=== PATIENT | female | born 1995 | race Two or more races ===

== ENCOUNTER 2024-05-20 14:46 | Outpatient (AMB) | payer MEDICAID, SELFPAY ==
[2024-05-20 15:00] VITALS: BP 119/79; PULSE 90; RESP 16; TEMP 36.5; O2SAT 98; BMI 25.4
--- NOTE | 2024-05-20 15:00 | ACNOTE_ITS ---
Vital Signs 05/20/24 15:00 Height 1.6 m Height Method Stated Weight 64.977 kg Weight Measurement Method Standing Scale BMI 25.4 BP 119/79 Blood Pressure Source Automatic Cuff Blood Pressure Location Left Upper Arm Position Sitting Respiration 16 Pulse 90 Pulse Source Monitor Temp 97.7 F Temp Source Oral Pulse Oximetry (%) 98 Oxygen Delivery Method Room Air Allergies/Meds Allergies & Medications Allergies No Known Allergies Allergy (Verified 05/20/24 15:01) Medication Reconciliation blood-glucose meter #1 ea 02/02/23 [Rx Confirmed 05/20/24] blood sugar diagnostic (Blood Glucose Test strips) #50 ea 09/21/23 [Rx Confirmed 05/20/24] blood sugar diagnostic (True Metrix Glucose Test Strip) #100 ea 09/21/23 [Rx Confirmed 05/20/24] dextrose 6 gram/15 mL oral gel (SugarUp) 10 g (25 mL) PO Q15M PRN hypoglycemia #100 mL 09/21/23 [Rx Confirmed 05/20/24] lancets #100 ea 09/21/23 [Rx Confirmed 05/20/24] pen needle, diabetic 29 gauge x 1/2 #100 ea 09/21/23 [Rx Confirmed 05/20/24] blood pressure monitor #1 ea 10/03/23 [Rx Confirmed 05/20/24] pantoprazole 40 mg tablet,delayed release 40 mg PO QDAY #30 tabs 01/01/24 [Rx Confirmed 05/20/24] melatonin 10 mg capsule 10 mg PO HS PRN sleep #20 caps 02/21/24 [Rx Confirmed 05/20/24] ergocalciferol (vitamin D2) 50 mcg (2,000 unit) capsule 150 mcg (3 x 50 mcg (2,000 unit)) PO QDAY #90 caps 03/11/24 [Rx Confirmed 05/20/24] glucagon 1 mg/0.2 mL subcutaneous auto-injector (Gvoke HypoPen 1-Pack) 1 mg (0.2 mL) subcut QDAY PRN hypoglycemia #0.2 mL 03/11/24 [Rx Confirmed 05/20/24] insulin lispro 100 unit/mL subcutaneous pen (Admelog SoloStar U-100 Insulin lispro) 15 unit (0.15 mL) subcut TID #15 mL 12/10/24 [Rx Confirmed 05/20/24] insulin lispro 100 unit/mL subcutaneous solution (Admelog U-100 Insulin lispro) 1 sliding scale dose subcut USEASDIRECTD #10 mL 03/11/24 [Rx Confirmed 05/20/24] duloxetine 30 mg capsule,delayed release 30 mg PO QDAY #30 caps 05/20/24 [Rx] insulin degludec 100 unit/mL (3 mL) subcutaneous pen 17 unit (0.17 mL) subcut HS #15 mL 05/20/24 [Rx] pregabalin 75 mg capsule 75 mg PO QHS diabetic neuropathy #30 caps 05/20/24 [Rx] MA Intake Visit Data Collection New Patient or Established: Established Patient (seen at [facility] within 3 years) Seen by Clinical Staff ONLY (RN/MA): No Pain Present Currently: No Pain scale:: 0 Pain Scale Used: Andrew-Singh/Numerical Synthetic Resin Operator Required: No PCP or OBGYN visit in last 3 months: Yes Hx Now: No Date of Last Menstrual Period: 05/19/24 Do You Feel Safe at Home: Yes Authorities Contacted: N/A Smoking Status Smoking Status: Never smoker Immunization / Flu Flu Vaccine in the Last 12 Months: No Flu Vaccine Exclusion Criteria: No Exclusion Criteria Past Medical History Past Medical History NEUROLOGIC: Negative Neurological Disorders or Seizures CARDIAC: Negative Cardiac Disorders or Congestive Heart Failure RESPIRATORY: Negative Chronic Obstructive Pulmonary Disease (COPD) or Asthma GASTROINTESTINAL: Negative Gastrointestinal Disorders or Gastroesophageal Reflux Disease GENITOURINARY: Negative Genitourinary Disorders, Renal Disease or Kidney Stones ENDOCRINE: Positive Endocrine Disorders, Diabetes Mellitus Type 1 and Diabetes Mellitus Type 2 HEMATOLOGIC: Negative Blood Disorders or Sickle Cell Disease PSYCHO/SOCIAL: Negative Depression OTHER HISTORY: Positive Hospitalization; Negative Falls, Blood Transfusions, Blood Transfusion Reaction, Anesthesia Reactions or MRSA Family History FAMILY HISTORY: Negative Family Psychiatric Problems, Family Respiratory Disorders, Family Cardiac Disorders, Family Gastrointestinal Problems or Family Cancer Social History SMOKING STATUS: Smoking status: Never smoker SECOND HAND EXPOSURE: second hand exposure: No (boyfriend vapes, goes outside to smoke) ALCOHOL: Alcohol Intake: Current ALCOHOL FREQUENCY: Alcohol Intake Frequency: A Few Times a Week HOUSING: Housing: House LIVES WITH: Lives With: Family Patient Portal [facility] Social History Living Situation History Housing: House Housing Other:: Lives w/family Tobacco History Smoking Status: Never smoker Second Hand Smoke Exposure: No (boyfriend vapes, goes outside to smoke) Alcohol History Alcohol Intake: Current Alcohol Intake Frequency: A Few Times a Week Substance Use History Substance Use: Marijuana Domestic Abuse History Do You Feel Safe at Home: Yes Review of Systems Report any current symptoms Only answer those that you have currently: Past Medical History Past Medical History Have you ever been diagnosed with any of the following: Neurological Problems Seizures: No Cardiology Problems Congestive Heart Failure: No Respiratory Problems Chronic Obstructive Pulmonary Disease (COPD): No Asthma: No Stomache/Intestinal Problems Gastroesophageal Reflux Disease: No Genital/Urinary Problems Renal Disease: No Kidney Stones: No Endocrine Problems Diabetes Mellitus Type 1: Yes Diabetes Mellitus Type 2: Yes Blood Problems Sickle Cell Disease: No Psychologic Problems Depression: No Other Problems Hospitalization: Yes Falls: No Blood Transfusions: No Blood Transfusion Reaction: No Anesthesia Reactions: No MRSA: No History of Present Illness HPI Narrative Ms. 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 She has uncontrolled blood sugars and she was not taking her insulin units properly. Hence dose was adjusted. Pt still complaints of tingling sensations and pain in her extremities. Pt was vitally stable and labs will be repeated after three weeks. 03/02/23: Pt came for follow up. She reports having itching on her back. She reports having elevated Blood glucose above 300 mg. She has been feeling unrested secondary to numbness and tingling sensations in extremities.She followed up with her [facility] in [facility] for bladder irritation but she denied taking antibiotic at that time and feels improved now. She has been feeling anxious and reports having palpitations. She was mildly tacycardiac with normal blood pressure. 03/23/23: Patient came for follow up. All labs were reviewed.Patient still complaints of itching and high blood sugars in 400s.Blood glucose of 430 mg/dl, Creatinine of 1.04 , sodium of 132. UA was positive for glucose only. She was counselled to take an appointment with cardiopulmonary specialist Dr Arias in [place] for insulin infusion pump. We added fexofenadine and apply moisturizer for pruritus. She denied itching present in anyone else at home. She stated that she has improvement in her anxiety and neuropathy. Switched her lantus to 15 units twice daily and counselled on uptitration based on her blood sugars and continue insulin sliding scale. 04/11/23(ED VISIT in [facility]): Patient went to the ED with chief complaint of generalized pruritus. She denied fever vomiting diarrhea she has no cough or congestion she has had no recent cold. her only concern was that her sugars are high and she needs better management of her diabetes. Medical workup revealed a sugar elevated at 415 otherwise the beta-hydroxybutyrate is negative. Her vital signs are unremarkable. White count is 8.5 hemoglobin 12.6 sodium 136 potassium 4.9 chloride 103 CO2 is 26.8 anion gap is 6 BUN is 18 creatinine 1.2 osmolality is 291. Liver transaminases unremarkable urine is little on the dry side at 1032 she has a few red blood cells in her urine she is not . And she has 4+ glucose in her urine. Patient has intermittent pruritus on her whole body including vagina area it is not just the vaginal area without any vaginal discharge. Concerned was that its more of a stress issue and was advised to keep a diary and record what she is eating what she is doing when she is thinking. She knows she needs to be more aggressive on her diabetes management. She may benefit by getting referred to a neurologist to sort out whether she really has a neuropathy but at this point there is no evidence of a glove and stocking distribution anything. And clinically she has normal sensation normal gait and no obvious neurological deficits. 04/20/23:Patient came for follow up. She reported that she still has complaint of mild itching which is generalized and no vaginal itching present now. She denied any vaginal discharge or burning sensation. She sometimes has mild vaginal pricking sensation. Her Blood sugars have been in 300s on insulin 26 Units. She didn't receive Fexofenadine from the pharmacy due to some reason last time and didn't take which explains persistent itching.She reported improvement in her pain in peripheral extremities. No rash or urticaria seen. Patient has scheduled appt with neurologist in [place] and was advised to schedule appt with cardiopulmonary specialist Dr Arias in [place]. 05/18/23: Patient seen in clinic. She denies any acute illness or hospitalizations since last visit. She reports her anxiety continues to be severe with no improvement since last visit. She reports anxiety can come on with no specific trigger. She denies trying Rx for anxiety in the past. Patient was prescribed buspirone on previous visit but has not taken secondary to cost and insurance not covering per patient. Discussed with patient that we will send different Rx to her pharmacy. Patient reports generalized itchiness on previous visit has completely resolved. She reports she obtained ethk-raz-hqhhzgd lotion which significantly helped. Patient continues to endors e bilateral neuropathy in her feet. She reports minor improvement with Lyrica. She denies seeing a residential program coordinator or brick pointer in the past. She reports she was diagnosed with diabetes at the age of 4. Last A1c on file 12.5%. Patient does report she recently completed labs at [facility] which are not available at this time and patient advised to have results faxed to our clinic. Patient is currently managing her diabetes with long-acting insulin 26 units at bedtime and 12 to 14 units 3 times daily of short acting insulin. Patient was referred to endocrinology previous visit but has not scheduled appointment but patient agrees to follow-up. She reports her weight has been stable. She denies headache and chest pain. No shortness of breath. She denies seeing blood in her urine or stool. She endorses normal bowel habits. She is sexually active with her boyfriend. 06/08/23: Patient was seen in the clinic. She still complaints of mild anxiety and her blood sugars continues to remain elevated. Her fasting blood sugar is above 250 and after meals are 300s. I discussed with the patient that we will stop her insulin lispro and lantus and will switch to degludec and lyumjev. She might be resistant to her old insulin regime. She was referred to residential program coordinator and brick pointer for screening. We ordered A1c and C-peptide level to check her insulin reserves if any. Patient understood and agreed to the plan. She doesnt want to have a visit to Obygyn visit for now. No plan for at this stage. 09/07/23: Patient came for follow-up in the clinic today. Patient reported that she forgot her dose of insulin for Lantus and has been feeling overall better. Her blood sugars have been around 380s. She was advised to start Lantus 20 units and uptitrate 1 unit every day until blood sugars come below 200 mg. Patient also reported having itchy allergic rash on both elbows noticed a month ago and recently using gyrm-onw-pyhwowp allergic ointment which has been helping partially. Ordered hydrocortisone 1% topical for week. Patient was advised to make an appointment with residential program coordinator and brick pointer as outpatient. We will continue with current management and patient has been doing well. Her anxiety has improved. No plans for . We will continue with current management. Refills were given. 09/21/2023: Telephone consult. Patient went to the ED On 09/14/2023 due to cellulitis of labia majora and was given prescription of TMP-SMX which has been helping for her complaint however was having persistent left flank pain. Urinalysis and renal functions were ordered. Follow-up on results. Medication refills were given. Blood sugars continues to remain evaluated prefer Lantus was increased to 35 units and lispro was increased to 12 units. Insurance did not cover for her Tresiba. Continue with rest of the management. 01/01/24: Patient came for follow up for unstable glycemic control. Patient was complaining of muscle cramps associated with numbness and tingling in both lower extremities and has been facing troubles maintaining her blood sugars. She reported that her blood sugars have been in 500s and was having hard time adjusting her insulin regimen. Patient is referred to cardiopulmonary specialist, Dr. Arias in [place] and referred to residential program coordinator, Dr. Jose Elias Kerr at [facility] for further evaluation. Insulin Lantus was adjusted to 20 units twice daily and lispro as 15 units 3 times daily with meals with insulin sliding scale. Refills were given for the rest of medications. A1c was ordered for follow-up. Patient stated that her itching and rash has resolved therefore fexofenadine and hydrocortisone topical was discontinued. She does have improvement in her depression and anxiety after taking duloxetine. 05/20/2024: Patient came for follow-up for lab workup. Patient was seen and examined at the bedside this afternoon in the clinic. Patient reported that she continues to have numbness and tingling sensations in both lower extremities however has been feeling improved with duloxetine and pregabalin combination. She also reported that her insulin requirements have been higher given the fact that her blood sugars have been in 600 however they have been around 300 from last few weeks. She does have a component of noncompliance with the diet and eat fried food along with complex carbohydrates. -->She is currently using basal bolus regimen including Tresiba 17 units at night and 15 units 3 times daily lispro and add on with sliding scale corrective dose for carbs ratio. She was not able to get residential program coordinator appointment and was given another referral for Dr. Jose Elias segundo. CBC, CMP, C-peptide and GGT were ordered. She may benefit with insulin infusion pump therefore prior authorization was started with [facility]. For now, she was recommended to continue with her current regimen of insulin and duloxetine with pregabalin for neuropathy. Duloxetine was refilled. Will follow-up on the labs and follow-up in 2 weeks. Objective/Exam Narrative Physical exam: GENERAL APPEARANCE: AxOx3, generally well-appearing female in no acute distress. HEENT: NC, AT. MMM. EOMI, clear conjunctiva, oropharynx clear. NECK: Supple without lymphadenopathy. No stiffness or restricted ROM. HEART: Sinus tachycardia with regular rhythm, normal S1/S2, no m/r/g LUNGS: CTAB, moving air well. No crackles or wheezes are heard. ABDOMEN: Soft, nontender, nondistended with good bowel sounds heard. EXTREMITIES: Without cyanosis, clubbing or edema. NEUROLOGICAL: Grossly nonfocal. Alert and oriented, moving all 4 extremities. CN not formally tested but appear grossly intact. Observed to ambulate with normal gait. Skin:Warm and dry without any rash. Psych: cooperative and interactive Assessment & Plan Diagnosis / Problem List (1) Type 1 diabetes mellitus with diabetic neuropathy: Status: Acute Assessment & Plan: #Type 1 diabetes with diabetic neuropathy ? Patient was diagnosed at the age of 4. ?Recent A1c 13.5 01/14/24 Plan: ? Follow-up on CBC, CMP, C-peptide and GGT ? Currently continuing Tresiba 17 units at bedtime, lispro 15 units 3 times daily and add on sliding scale ? Continuing pregabalin 75 mg at night and duloxetine 30 mg at morning ? Recommended to follow strict diabetic diet ? Prescription for duloxetine given ? Referral to residential program coordinator Dr. Jose Elias Kerr, for diabetic foot evaluation ? Follow-up in 2 weeks (2) GERD (gastroesophageal reflux disease): Status: Acute Qualifiers: Esophagitis presence: without esophagitis Qualified Code(s): K21.9 - Gastro-esophageal reflux disease without esophagitis Assessment & Plan: #GERD ? Patient had no active issue today. Plan: ?Recommended to continue Protonix 40 mg once daily (3) Generalized anxiety disorder: Status: Acute Assessment & Plan: #Generalized anxiety disorder ? Patient's symptoms have improved for anxiety. Plan: ? Continue duloxetine as it is helping for symptoms -- Patient was seen and discussed with MD Jerry Baron MD,[id number] Orders: Orders CBC Today E10.40 - Type 1 diabetes mellitus with diabetic neuropathy, unspecified Comprehensive Metabolic Panel Today C-Peptide* Today E10.40 - Type 1 diabetes mellitus with diabetic neuropathy, unspecified Gamma Glutamyl Transpeptidase* Today E10.40 - Type 1 diabetes mellitus with diabetic neuropathy, unspecified Referrals Podiatry E10.43 - Type 1 diabetes mellitus with diabetic autonomic (poly)neuropathy Office Procedures [facility] Level of Care Nursing/Assessment Patient Status: Established Patient Nursing Assessment/Reassessment: Medication Reconciliation, Update PMH in EMR and Vital Signs Coordination of Care: Complex Care and Chronic Disease 1-5, Consent,records obtained, informed consent, Education Simp Pt/Fam, Lab and Imaging orders and Staff clarify orders Established Patient Charge Established Patient Point Assignment: 100 Established Patient Point Charge: Level 3 (80-115)
== END 2024-05-20 15:50 | disposition home or self-care (01) ==
LOC: HODAHC 14:46
PROVIDERS: PCP Student in an Organized Health Care Education/Training Program; Referring Provider Student in an Organized Health Care Education/Training Program; Supervising Provider Internal Medicine; Visit Provider Student in an Organized Health Care Education/Training Program
DX: E10.42 Type 1 diabetes mellitus with diabetic polyneuropathy (principal); Z91.119 Patient's noncompliance with dietary regimen due to unspecified reason; Z79.4 Long term (current) use of insulin; F41.1 Generalized anxiety disorder
CPT/HCPCS: 99213; G0463

== ENCOUNTER 2024-08-11 11:44 | Inpatient (IN) | payer MEDICAID, SELFPAY ==
[2024-08-11] VITALS (13 sets, daily range): BP systolic 93–121; BP diastolic 59–77; PULSE 90–118; RESP 12–19; TEMP 36.4–37.1; O2SAT 98–100; BMI 23.3
--- NOTE | 2024-08-11 12:10 | XR_ITS ---
Examination: PA chest single view TECHNIQUE: Upright PA chest single view Date and time: August 11, 2024 1256 hours INDICATIONS: Shortness of breath today. FINDINGS: Normal heart size No pneumonia 7 mm pulmonary nodule left upper lobe Intact osseous structures IMPRESSION: No lobar pneumonia 7 mm pulmonary nodule left upper lobe, likely postinfectious, clinical correlation advised
--- NOTE | 2024-08-11 12:10 | PD.EDADULT ---
ED General RME/HPI General Chief complaint: Shortness of Breath/Dyspnea Stated complaint: SOB X3 DAYS Arrival date/time: 08/11/24 11:44 RME / HPI RME / HPI narrative: This patient is a 28-year-old female with past medical history of insulin-dependent type 1 diabetes, history of DKA in the past, Hx of anxiety, diabetic neuropathy presented to the ED on 08/11/2024 with chief complaint of shortness of breath and tachycardia/racing of heart from last 3 days. She reported that she checked her blood sugar this morning which was around 421 and gave herself 7 units of insulin. She is using glargine at night around 26 units. She reported that she had a vomiting episode last night after eating from [employer]. Vomiting consisted of digested food particles. She has been having difficulty in getting OmniPod insulin infusion pump from [facility] pharmacy due to some insurance issues although insurance approved insulin pump. Patient's last menstrual period was 2 days ago. She has been having some personal issues related to family and has been stressed out lately.She denied any fever, chest pain, abdominal discomfort or dysuria's. No recent travel. She has been taking her medications.She follows up with me in our [facility]. Being her primary care doctor, I reached out to administrative receptionist, Dr. Arias for help In regards to insulin pump. She would not be able to see Dr. Arias as outpatient given her insurance limitation. He stated that patient would not benefit with OmniPod insulin pump which were getting insurance authorization with help of pharmacist in hospital due to difficulty of managing it it outpatient. He recommended to get authorization for 780G pump with Guardian 4 sensor which we started working on. We would have someone to come and help the patient as outpatient with this pump. Patient was notified and will start with the process for 780G pump insulin pump. PSH: Noncontributory FH: Positive for diabetes in grandfather SH: Smokes 2 to 3 cigarettes every day, smokes marijuana once every week. No history of illicit drug use. Home medications: Degludec 26 units, lispro units based on carb intake, duloxetine 30 mg, melatonin as needed for sleep, omeprazole 40 mg, vitamin D, pregabalin 75 mg Allergies: NKDA Vitals showed soft blood pressure 93/64, heart rate 118, respiratory rate 19 and afebrile. Patient was saturating well on room air. PMH: As above We ordered basic labs including EKG, CBC, CMP, urine drug screen, urine beta-hCG, lactic acid, magnesium, phosphorus, urinalysis, VBG's and BHB along with blood sugar check. Chest x-ray was ordered. I gave her 1 L bolus of LR, Pepcid x 1 and Zofran x 1. Will follow-up with the lab results. 12:55 patient had an episode of vomiting while using the restroom. She reported that she has been having anxiety due to her family related problems at home. I ordered hydroxyzine p.o. 25 mg x 1. Awaiting labs. 14:28 labs were significant for leukocytosis WBC 12.9, hemoglobin 13.5, platelet count for 459. VBG showed pH 7.12, pCO2 18. Chemistry panel was significant for anion gap metabolic acidosis with bicarb less than 10 anion gap of 21. Kidney function showed mild NGUYỄN with BUN 19 and creatinine 1.5 with baseline creatinine 1.4. Blood glucose 194. Lactic acid 1.7. Enzymes unremarkable. Mildly elevated ALP. BHB 5.1. Chest x-ray significant for 7 mm pulmonary nodule left upper lobe. No active disease. Patient denied any symptoms. Urine test negative. U tox was negative.EKG showed sinus tachycardia with QTc 441. Urinalysis was turbid with pyuria associated with glucosuria and ketones. Differential diagnosis included intractable nausea and vomiting related to DKA, uncontrolled type 1 diabetes due to insulin and diet non compliance, anion gap metabolic acidosis, leukocytosis 14: 32 ICU team was called for admission for DKA management. Patient was updated that she needs to be strictly compliant with her diet and insulin therapy until she get insulin pump from pharmacy. Patient was also advised to cut back on smoking as there was a pulmonary nodule finding in her imaging results. She was updated that she will be admitted for DKA management. ICU team accepted the patient. complaint: SOB and racing of heart Onset (ago): day(s) (1) Associated symptoms: shortness of breath Related Data Previous Rx's ?Medication ?Instructions ?Recorded blood-glucose meter #1 ea 02/02/23 blood sugar diagnostic (Blood #50 ea 09/21/23 Glucose Test strips) blood sugar diagnostic (True #100 ea 09/21/23 Metrix Glucose Test Strip) dextrose 6 gram/15 mL oral gel 10 g (25 mL) PO Q15M PRN 09/21/23 (SugarUp) hypoglycemia #100 mL lancets #100 ea 09/21/23 pen needle, diabetic 29 gauge x #100 ea 09/21/23 1/2 blood pressure monitor #1 ea 10/03/23 melatonin 10 mg capsule 10 mg PO HS PRN sleep #20 caps 02/21/24 ergocalciferol (vitamin D2) 50 mcg 150 mcg (3 x 50 mcg (2,000 unit)) 03/11/24 (2,000 unit) capsule PO QDAY #90 caps glucagon 1 mg/0.2 mL subcutaneous 1 mg (0.2 mL) subcut QDAY PRN 03/11/24 auto-injector (Gvoke HypoPen hypoglycemia #0.2 mL 1-Pack) insulin lispro 100 unit/mL 15 unit (0.15 mL) subcut TID #15 mL 03/11/24 subcutaneous pen (Admelog SoloStar U-100 Insulin lispro) insulin lispro 100 unit/mL 1 sliding scale dose subcut 03/11/24 subcutaneous solution (Admelog USEASDIRECTD #10 mL U-100 Insulin lispro) insulin degludec 100 unit/mL (3 17 unit (0.17 mL) subcut HS #15 mL 05/20/24 mL) subcutaneous pen blood-glucose,patient safety coordinator,cont #1 ea 06/05/24 (Dexcom G7 Health Companion) hydroxyzine HCl 25 mg tablet 25 mg PO TID PRN itching #30 tabs 06/05/24 insulin aspart U-100 100 unit/mL 1 sliding scale dose subcut 06/05/24 subcutaneous cartridge (Novolog USEASDIRECTD upto 200 units every PenFill U-100 Insulin aspart) 3 days via insulin pump #15 mL insulin pump cartridge,auto #1 ea 06/05/24 dose,BT,G6/G7 with controller subcutaneous (Omnipod 5 G6-G7 Intro Kit(Gen 5) subcutaneous cartridge and controller) blood-glucose sensor (Dexcom G7 #1 ea 07/15/24 Sensor device) pregabalin 75 mg capsule 75 mg PO QHS diabetic neuropathy 07/15/24 #30 caps famotidine 20 mg tablet (Pepcid) 20 mg PO QDAY #90 tabs 08/11/24 Allergies Allergy/AdvReac Type Severity Reaction Status Date / Time No Known Allergies Allergy Verified 05/20/24 15:01 Review of Systems Review of Systems Systems Reviewed: All systems reviewed, normal except as documented Past Medical History Past Medical History NEUROLOGIC: Negative Neurological Disorders or Seizures CARDIAC: Negative Cardiac Disorders or Congestive Heart Failure RESPIRATORY: Negative Chronic Obstructive Pulmonary Disease (COPD) or Asthma GASTROINTESTINAL: Negative Gastrointestinal Disorders or Gastroesophageal Reflux Disease GENITOURINARY: Negative Genitourinary Disorders, Renal Disease or Kidney Stones MUSCULOSKELETAL: Negative Musculoskeletal Disorders ENDOCRINE: Positive Endocrine Disorders, Diabetes Mellitus Type 1 and Diabetes Mellitus Type 2 HEMATOLOGIC: Negative Blood Disorders or Sickle Cell Disease PSYCHO/SOCIAL: Negative Depression OTHER HISTORY: Positive Hospitalization; Negative Falls, Blood Transfusions, Blood Transfusion Reaction, Anesthesia Reactions or MRSA Family History FAMILY HISTORY: Negative Family Psychiatric Problems, Family Respiratory Disorders, Family Cardiac Disorders, Family Gastrointestinal Problems or Family Cancer Social History SMOKING STATUS: Never smoker SECOND HAND EXPOSURE: No (boyfriend vapes, goes outside to smoke) SUBSTANCE USE: does not use ED Exam Narrative Physical exam: GENERAL APPEARANCE: AxOx3, young female in mild distress due to racing of heart. HEENT: NC, AT. Dry mucous membrane. EOMI, clear conjunctiva, oropharynx clear. NECK: Supple without lymphadenopathy. No stiffness or restricted ROM. HEART: Sinus tachycardia with regular rhythm, normal S1/S2, no m/r/g LUNGS: CTAB, moving air well. No crackles or wheezes are heard. ABDOMEN: Soft, nontender, nondistended with good bowel sounds heard. EXTREMITIES: Without cyanosis, clubbing or edema. NEUROLOGICAL: Grossly nonfocal. Alert and oriented, moving all 4 extremities. CN not formally tested but appear grossly intact. Observed to ambulate with normal gait. Skin:Warm and dry without any rash. Psych: Mildly anxious however cooperative and interactive Course Course Course Narrative: This patient is a 28-year-old female with past medical history of insulin-dependent type 1 diabetes, history of DKA in the past, Hx of anxiety, diabetic peripheral neuropathy presented to the ED on 08/11/2024 with chief complaint of shortness of breath and tachycardia/racing of heart from last 3 days. Vitals showed soft blood pressure 93/64, heart rate 118, respiratory rate 19 and afebrile. Patient was saturating well on room air. PMH: As above We ordered basic labs including CBC, CMP, urine drug screen, urine beta-hCG, lactic acid, magnesium, phosphorus, urinalysis, VBG's and BHB along with blood sugar check. Chest x-ray was ordered. I gave her 1 L bolus of LR, Pepcid x 1 and Zofran x 1. Will follow-up with the lab results. 12:55 patient had an episode of vomiting while using the restroom. She reported that she has been having anxiety due to her family related problems at home. I ordered hydroxyzine p.o. 25 mg x 1. Awaiting labs. We ordered basic labs including EKG, CBC, CMP, urine drug screen, urine beta-hCG, lactic acid, magnesium, phosphorus, urinalysis, VBG's and BHB along with blood sugar check. Chest x-ray was ordered. I gave her 1 L bolus of LR, Pepcid x 1 and Zofran x 1. Will follow-up with the lab results. 12:55 patient had an episode of vomiting while using the restroom. She reported that she has been having anxiety due to her family related problems at home. I ordered hydroxyzine p.o. 25 mg x 1. Awaiting labs. 14:28 labs were significant for leukocytosis WBC 12.9, hemoglobin 13.5, platelet count for 459. VBG showed pH 7.12, pCO2 18. Chemistry panel was significant for anion gap metabolic acidosis with bicarb less than 10 anion gap of 21. Kidney function showed mild NGUYỄN with BUN 19 and creatinine 1.5 with baseline creatinine 1.4. Blood glucose 194. Lactic acid 1.7. Enzymes unremarkable. Mildly elevated ALP. BHB 5.1. Chest x-ray significant for 7 mm pulmonary nodule left upper lobe. No active disease. Patient denied any symptoms. Urine test negative. U tox was negative.EKG showed sinus tachycardia with QTc 441. Urinalysis was turbid with pyuria associated with glucosuria and ketones. Differential diagnosis included intractable nausea and vomiting related to DKA, uncontrolled type 1 diabetes due to insulin and diet non compliance, anion gap metabolic acidosis, leukocytosis 14: 32 ICU team was called for admission for DKA management. Patient was updated that she needs to be strictly compliant with her diet and insulin therapy until she get insulin pump from pharmacy. Patient was also advised to cut back on smoking as there was a pulmonary nodule finding in her imaging results. She was updated that she will be admitted for DKA management. ICU team accepted the patient. Quality Measures none Orders Category Date Time Status Admit to Inpatient Status Routine Admission 08/11/24 14:16 Active Patient Condition Routine Admission 08/11/24 14:16 Ordered Activity as Tolerated Routine Care 08/11/24 14:17 Ordered Bathroom Privileges as Tolerated Routine Care 08/11/24 14:19 Ordered Bedside Blood Glucose Q1H Care 08/11/24 14:19 Active COVID-19 Screening Questionnaire NOW Care 08/11/24 14:16 Active Marketing And Promotions Manager Q4H Care 08/11/24 14:19 Active DKA Protocol QSHIFT Care 08/11/24 14:19 Active Decision to Admit X1 Care 08/11/24 14:16 Completed EKG (ED ONLY) *Do not use* NOW Care 08/11/24 12:59 Completed Fingerstick [Bedside Blood Glucose] NOW Care 08/11/24 12:10 Completed Fingerstick [Bedside Blood Glucose] NOW Care 08/11/24 13:37 Active Insert IV NOW Care 08/11/24 12:10 Active Intake and Output Q1H Care 08/11/24 14:30 Ordered Intake and Output Q1H Care 08/11/24 15:30 Ordered Intake and Output Q1H Care 08/11/24 16:30 Ordered Intake and Output Q1H Care 08/11/24 17:30 Ordered Intake and Output Q1H Care 08/11/24 18:30 Ordered Intake and Output Q1H Care 08/11/24 19:30 Ordered Intake and Output Q1H Care 08/11/24 20:30 Ordered Intake and Output Q1H Care 08/11/24 21:30 Ordered Intake and Output Q1H Care 08/11/24 22:30 Ordered Intake and Output Q1H Care 08/11/24 23:30 Ordered NPO NOW Care 08/11/24 14:17 Active Notify provider NEEDED Care 08/11/24 14:16 Active Notify provider NEEDED Care 08/11/24 14:19 Active Obtain weight NOW Care 08/11/24 14:16 Active Seizure precautions NEEDED Care 08/11/24 14:17 Active Strict Intake and Output Q1H Care 08/11/24 14:30 Ordered Strict Intake and Output Q1H Care 08/11/24 15:30 Ordered Strict Intake and Output Q1H Care 08/11/24 16:30 Ordered Strict Intake and Output Q1H Care 08/11/24 17:30 Ordered Strict Intake and Output Q1H Care 08/11/24 18:30 Ordered Strict Intake and Output Q1H Care 08/11/24 19:30 Ordered Strict Intake and Output Q1H Care 08/11/24 20:30 Ordered Strict Intake and Output Q1H Care 08/11/24 21:30 Ordered Strict Intake and Output Q1H Care 08/11/24 22:30 Ordered Strict Intake and Output Q1H Care 08/11/24 23:30 Ordered Strict Intake and Output Q1H Care 08/12/24 00:30 Ordered Strict Intake and Output Q1H Care 08/12/24 01:30 Ordered Strict Intake and Output Q1H Care 08/12/24 02:30 Ordered Strict Intake and Output Q1H Care 08/12/24 03:30 Ordered Strict Intake and Output Q1H Care 08/12/24 04:30 Ordered Strict Intake and Output Q1H Care 08/12/24 05:30 Ordered Strict Intake and Output Q1H Care 08/12/24 06:30 Ordered Strict Intake and Output Q1H Care 08/12/24 07:30 Ordered Strict Intake and Output Q1H Care 08/12/24 08:30 Ordered Strict Intake and Output Q1H Care 08/12/24 09:30 Ordered Strict Intake and Output Q1H Care 08/12/24 10:30 Ordered Strict Intake and Output Q1H Care 08/12/24 11:30 Ordered Strict Intake and Output Q1H Care 08/12/24 12:30 Ordered Strict Intake and Output Q1H Care 08/12/24 13:30 Ordered Vital Signs, Non-Routine Q4H Care 08/11/24 14:30 Ordered Vital Signs, Non-Routine Q4H Care 08/11/24 18:30 Ordered Vital Signs, Non-Routine Q4H Care 08/11/24 22:30 Ordered Referral Registered Dietitian Routine Cons 08/11/24 14:19 Active Diet NPO (NOW) Diet 08/11/24 14:17 Active CXR1 [XR chest 1V] Stat Exams 08/11/24 12:10 Completed EKG (ED Only) Stat Exams 08/11/24 12:59 Draft Beta Hydroxybutyrate Stat Lab 08/11/24 12:20 Completed Blood Culture (Lab) Routine Lab 08/11/24 15:10 Received CBC AM DRAW Lab 08/12/24 05:00 Ordered CBC AM DRAW Lab 08/13/24 05:00 Ordered CBC AM DRAW Lab 08/14/24 05:00 Ordered CBC Stat Lab 08/11/24 12:20 Completed CMP [Comprehensive Metabolic Panel] Stat Lab 08/11/24 12:20 Completed Drug Screen,Urine Stat Lab 08/11/24 13:09 Completed HCG Qualitative,Urine Stat Lab 08/11/24 13:09 Completed Lactate (Lactic Acid) Q4H Lab 08/11/24 18:30 Ordered Lactate (Lactic Acid) Q4H Lab 08/11/24 22:30 Ordered Lactate (Lactic Acid) Q4H Lab 08/12/24 02:30 Ordered Lactate (Lactic Acid) Q4 Lab 08/12/24 06:30 Ordered Lactate (Lactic Acid) Q4 Lab 08/12/24 10:30 Ordered Lactate (Lactic Acid) Q4 Lab 08/12/24 14:30 Ordered Lactate (Lactic Acid) Q4 Lab 08/12/24 18:30 Ordered Lactate (Lactic Acid) Q4 Lab 08/12/24 22:30 Ordered Lactate (Lactic Acid) Q4 Lab 08/13/24 02:30 Ordered Lactate (Lactic Acid) Q4 Lab 08/13/24 06:30 Ordered Lactate (Lactic Acid) Q4 Lab 08/13/24 10:30 Ordered Lactate (Lactic Acid) Q4 Lab 08/13/24 14:30 Ordered Lactate (Lactic Acid) Stat Lab 08/11/24 12:20 Completed Mag [Magnesium] Stat Lab 08/11/24 12:20 Completed Magnesium Q4H Lab 08/12/24 02:30 Ordered Magnesium Q4 Lab 08/12/24 06:30 Ordered Magnesium Q4H Lab 08/12/24 10:30 Ordered Magnesium Q4H Lab 08/12/24 14:30 Ordered Magnesium Q4 Lab 08/12/24 18:30 Ordered Magnesium Q4H Lab 08/12/24 22:30 Ordered Magnesium Q4H Lab 08/13/24 02:30 Ordered Magnesium Q4H Lab 08/13/24 06:30 Ordered Magnesium Q4H Lab 08/13/24 10:30 Ordered Magnesium Q4H Lab 08/13/24 14:30 Ordered Phosphorous Q4 Lab 08/12/24 02:30 Ordered Phosphorous Q4 Lab 08/12/24 06:30 Ordered Phosphorous Q4 Lab 08/12/24 10:30 Ordered Phosphorous Q4 Lab 08/12/24 14:30 Ordered Phosphorous Q4 Lab 08/12/24 18:30 Ordered Phosphorous Q4 Lab 08/12/24 22:30 Ordered Phosphorous Q4 Lab 08/13/24 02:30 Ordered Phosphorous Q4 Lab 08/13/24 06:30 Ordered Phosphorous Q4 Lab 08/13/24 10:30 Ordered Phosphorous Q4 Lab 08/13/24 14:30 Ordered Phosphorous Stat Lab 08/11/24 12:20 Completed Renal Function Panel Q4 Lab 08/11/24 18:30 Ordered Renal Function Panel Q4 Lab 08/12/24 02:30 Ordered Renal Function Panel Q4 Lab 08/12/24 06:30 Ordered Renal Function Panel Q4 Lab 08/12/24 10:30 Ordered Renal Function Panel Q4 Lab 08/12/24 14:30 Ordered Renal Function Panel Q4 Lab 08/12/24 18:30 Ordered Renal Function Panel Q4 Lab 08/12/24 22:30 Ordered Renal Function Panel Q4 Lab 08/13/24 02:30 Ordered Renal Function Panel Q4 Lab 08/13/24 06:30 Ordered Renal Function Panel Q4 Lab 08/13/24 10:30 Ordered Renal Function Panel Q4 Lab 08/13/24 14:30 Ordered Urinalysis Stat Lab 08/11/24 13:09 Completed VBG [Venous Blood Gas] Stat Lab 08/11/24 12:20 Completed Venous Blood Gas Q4 Lab 08/11/24 18:30 Ordered Venous Blood Gas Q4 Lab 08/11/24 22:30 Ordered Venous Blood Gas Q4 Lab 08/12/24 02:30 Ordered Venous Blood Gas Q4 Lab 08/12/24 06:30 Ordered Venous Blood Gas Q4 Lab 08/12/24 10:30 Ordered Venous Blood Gas Q4 Lab 08/12/24 14:30 Ordered Venous Blood Gas Q4 Lab 08/12/24 18:30 Ordered Venous Blood Gas Q4 Lab 08/12/24 22:30 Ordered Venous Blood Gas Q4H Lab 08/13/24 02:30 Ordered Venous Blood Gas Q4H Lab 08/13/24 06:30 Ordered Venous Blood Gas Q4H Lab 08/13/24 10:30 Ordered Venous Blood Gas Q4H Lab 08/13/24 14:30 Ordered Acetaminophen Tab [Tylenol Tab] Med 08/11/24 14:16 Active 650 mg PO Q6H PRN Dextrose 5%-Lactated Ringers [D5-Lr] 1,000 ml Med 08/11/24 14:16 Active Pot Chl Additive [KCl Additive] 40 meq IV 250 mls/hr Dextrose 5%-Lactated Ringers [D5-Lr] 1,000 ml Med 08/11/24 14:16 Active IV 250 mls/hr Dextrose 50% Syr [D50w Syringe Abboject] Med 08/11/24 14:16 Active 25 ml IV PRNMRX1 PRN Famotidine Inj [Pepcid Inj] Med 08/11/24 12:10 Discontinued 20 mg IVP X1 ONE KCL 20 mEq/L in D5-LR Med 08/11/24 14:16 Active 20 meq in 1,000 ml IV 250 mls/hr Magnesium Sulfate 2 GM Ivpb [Magnesium Sulfate Ivpb] Med 08/11/24 14:16 Active 2 gm in 50 ml IV 25 mls/hr Ondansetron Inj [Zofran Inj] Med 08/11/24 14:16 Active 4 mg IV Q6H PRN Ondansetron Inj [Zofran Inj] Med 08/11/24 12:10 Discontinued 4 mg IV X1 ONE POT PHOS 15 mMol in NS 250 ML [Pot Phos 15 mMol in NS Med 08/11/24 14:16 Active 250 ml] 15 mmol in 250 ml IV PRN POTASSIUM CHL 10 mEq IVPB [Kcl Ivpb] Med 08/11/24 14:16 Active 10 meq in 100 ml IV 100 mls/hr POTASSIUM CHL 10 mEq IVPB [Kcl Ivpb] Med 08/11/24 14:16 Active 10 meq in 100 ml IV PRN Pre-Mixed [Pre-mixed Bag] 1 bag Med 08/11/24 14:16 Active Insulin Reg 100 Units/100 ml [Myxredlin] 100 unit IV 0.1 unit/kg/hr Ringers Lactated 1000 ml [Lactated Ringers] 1,000 ml Med 08/11/24 14:16 Active Pot Chl Additive [KCl Additive] 20 meq IV 250 mls/hr Ringers Lactated 1000 ml [Lactated Ringers] 1,000 ml Med 08/11/24 14:16 Active Pot Chl Additive [KCl Additive] 40 meq IV 250 mls/hr Ringers Lactated 1000 ml [Lactated Ringers] 1,000 ml Med 08/11/24 14:16 Active IV 250 mls/hr Ringers Lactated 1000 ml [Lactated Ringers] 1,000 ml Med 08/11/24 12:11 Discontinued IV 999 mls/hr Ringers Lactated 1000 ml [Lactated Ringers] 1,000 ml Med 08/11/24 13:30 Discontinued IV 999 mls/hr Sodium Bicarb 8.4% SYR Med 08/11/24 14:16 Active 50 ml IV PRN PRN Sodium Chloride 0.9% 250 ml [Ns] 250 ml Med 08/11/24 14:16 Active Sod Phos Additive [NaPhos Additive] 15 mmol IV 62.5 mls/hr hydrOXYzine HCL [Atarax] Med 08/11/24 12:51 Discontinued 25 mg PO X1 ONE Code Status Routine Oth 08/11/24 14:16 Ordered Vital Signs Vital signs: Vital Signs Pulse Rate 118 H 08/11/24 12:01 Blood Pressure 93/64 08/11/24 12:01 Pulse Oximetry (%) 99 08/11/24 12:01 Oxygen Delivery Method Room Air 08/11/24 12:01 Discharge Plan Plan Patient Disposition: Admit Acute Care w/in Hospital Problem List Clinical Impression: DKA (diabetic ketoacidosis), Vomiting, Palpitations MDM Narrative MDM hospital course (for use when minimal MDM required): This patient is a 28-year-old female with past medical history of insulin-dependent type 1 diabetes, history of DKA in the past, Hx of anxiety, diabetic peripheral neuropathy presented to the ED on 08/11/2024 with chief complaint of shortness of breath and tachycardia/racing of heart from last 3 days. Vitals showed soft blood pressure 93/64, heart rate 118, respiratory rate 19 and afebrile. Patient was saturating well on room air. PMH: As above We ordered basic labs including CBC, CMP, urine drug screen, urine beta-hCG, lactic acid, magnesium, phosphorus, urinalysis, VBG's and BHB along with blood sugar check. Chest x-ray was ordered. I gave her 1 L bolus of LR, Pepcid x 1 and Zofran x 1. Will follow-up with the lab results. 12:55 patient had an episode of vomiting while using the restroom. She reported that she has been having anxiety due to her family related problems at home. I ordered hydroxyzine p.o. 25 mg x 1. Awaiting labs. We ordered basic labs including EKG, CBC, CMP, urine drug screen, urine beta-hCG, lactic acid, magnesium, phosphorus, urinalysis, VBG's and BHB along with blood sugar check. Chest x-ray was ordered. I gave her 1 L bolus of LR, Pepcid x 1 and Zofran x 1. Will follow-up with the lab results. 12:55 patient had an episode of vomiting while using the restroom. She reported that she has been having anxiety due to her family related problems at home. I ordered hydroxyzine p.o. 25 mg x 1. Awaiting labs. 14:28 labs were significant for leukocytosis WBC 12.9, hemoglobin 13.5, platelet count for 459. VBG showed pH 7.12, pCO2 18. Chemistry panel was significant for anion gap metabolic acidosis with bicarb less than 10 anion gap of 21. Kidney function showed mild NGUYỄN with BUN 19 and creatinine 1.5 with baseline creatinine 1.4. Blood glucose 194. Lactic acid 1.7. Enzymes unremarkable. Mildly elevated ALP. BHB 5.1. Chest x-ray significant for 7 mm pulmonary nodule left upper lobe. No active disease. Patient denied any symptoms. Urine test negative. U tox was negative.EKG showed sinus tachycardia with QTc 441. Urinalysis was turbid with pyuria associated with glucosuria and ketones. Differential diagnosis included intractable nausea and vomiting related to DKA, uncontrolled type 1 diabetes due to insulin and diet non compliance, anion gap metabolic acidosis, leukocytosis 14: 32 ICU team was called for admission for DKA management. Patient was updated that she needs to be strictly compliant with her diet and insulin therapy until she get insulin pump from pharmacy. Patient was also advised to cut back on smoking as there was a pulmonary nodule finding in her imaging results. She was updated that she will be admitted for DKA management. Discussed patient's ED course, exam findings, labs and radiology results. ICU team accepted the patient. EKG Interpretation EKG #1: EKG Interpretation: EKG showed sinus tachycardia with QTc 441. Medication Administration(s) Medication Administration History Acetaminophen (Acetaminophen 325 Mg Tablet) 650 mg PO Q6H PRN PRN Reason: PAIN SCALE 1-3 (mild Stop: 09/10/24 14:15 Dextrose (Dextrose 50%-Water Inj 50 Ml Syringe) 25 ml IV PRNMRX1 PRN PRN Reason: Blood Sugar - Low Enoxaparin Sodium (Enoxaparin Sod Inj 40 Mg/0.4 Ml Syringe) 40 mg SC QDAY SARAH Stop: 08/26/24 08:59 Potassium Chloride (Kcl Ivpb) 10 meq in 100 mls @ 100 mls/hr IV .Q1H PRN PRN Reason: IF POTASSIUM LESS THAN 3.3 Stop: 09/10/24 14:15 Magnesium Sulfate (Magnesium Sulfate Ivpb) 2 gm in 50 mls @ 25 mls/hr IV .Q2H PRN PRN Reason: PER DKA PROTOCOL Stop: 09/10/24 14:15 Insulin Human Regular 100 unit (/ IV Miscellaneous Supplies) 100 mls @ 5.987 mls/hr IV .[id number] PRN; Protocol PRN Reason: PER PROTOCOL Stop: 09/10/24 14:15 Last Admin: 08/11/24 16:37 Dose: 0.025 unit/kg/hr, 1.497 mls/hr Documented By: SALINA Co-signed By: [facility] Dextrose/Lactated Ringer's (D5-Lr) 1,000 mls @ 250 mls/hr IV .Q4H PRN PRN Reason: PER PROTOCOL Stop: 09/10/24 14:15 Lactated Ringer's (Lactated Ringers) 1,000 mls @ 250 mls/hr IV .Q4H PRN PRN Reason: PER PROTOCOL Stop: 08/12/24 14:15 Potassium Chloride 20 meq/ (Lactated Ringer's) 1,010 mls @ 250 mls/hr IV .Q4H3M PRN PRN Reason: K LEVEL 3.3 TO 5.3mM/L Stop: 09/10/24 14:15 Potassium Chloride 40 meq/ (Lactated Ringer's) 1,020 mls @ 250 mls/hr IV .Q4H5M PRN PRN Reason: K LEVEL < 3.3 mM/L Stop: 09/10/24 14:15 Potassium Chloride 40 meq/ (Dextrose/Lactated Ringer's) 1,020 mls @ 250 mls/hr IV .Q4H5M PRN PRN Reason: K LEVEL < 3.3mM/L Stop: 09/10/24 14:15 Potassium Cl/Dextrose/Lact Ringer's (Kcl 20 Meq/L In D5-Lr) 20 meq in 1,000 mls @ 250 mls/hr IV .Q4H PRN PRN Reason: K LEVEL 3.3 TO 5.3 mM/L Stop: 09/10/24 14:15 Last Admin: 08/11/24 16:36 Dose: 250 mls/hr Documented By: SALINA Potassium Chloride (Kcl Ivpb) 10 meq in 100 mls @ 50 mls/hr IV PRN PRN PRN Reason: K LEVEL 3.3 to 5.3 & BG > 200 Stop: 09/10/24 14:15 Potassium Phosphate (Pot Phos 15 Mmol In Ns 250 Ml) 15 mmol in 250 mls @ 62.5 mls/hr IV PRN PRN PRN Reason: Phosphate <= 1mg/dL Stop: 09/10/24 14:15 Sodium Phosphate 15 mmol/ (Sodium Chloride) 255 mls @ 62.5 mls/hr IV .Q4H5M PRN PRN Reason: Phosphate <= 1mg/dL and K> than 5.3 Stop: 09/10/24 14:15 Ondansetron HCl (Ondansetron Inj 2 Mg/Ml Inj 2 Ml) 4 mg IV Q6H PRN; Protocol PRN Reason: NAUSEA OR VOMITING Stop: 09/10/24 14:15 Sodium Bicarbonate (Sodium Bicarb Inj 8.4% Syr 50 Ml Syringe) 50 ml IV PRN PRN PRN Reason: For ph <= to 7.0 Stop: 09/10/24 14:15 Discontinued Medications Famotidine (Famotidine Inj 10 Mg/Ml Vial 2 Ml) 20 mg IVP X1 ONE Stop: 08/11/24 12:11 Last Admin: 08/11/24 14:11 Dose: 20 mg Documented By: SALINA Hydroxyzine HCl (Hydroxyzine Hcl 25 Mg Tablet) 25 mg PO X1 ONE Stop: 08/11/24 12:52 Last Admin: 08/11/24 14:09 Dose: 25 mg Documented By: SALINA Lactated Ringer's (Lactated Ringers) 1,000 mls @ 999 mls/hr IV .Q1H1M ONE Stop: 08/11/24 13:11 Last Infusion: 08/11/24 15:17 Dose: Infused Documented By: Admin: 08/11/24 14:15 Dose: 999 mls/hr Documented By: SALINA Lactated Ringer's (Lactated Ringers) 1,000 mls @ 999 mls/hr IV .Q1H1M ONE Stop: 08/11/24 14:30 Last Admin: 08/11/24 15:16 Dose: Not Given Documented By: SALINA Non-Admin Reason: Cancelled by Provider Ondansetron HCl (Ondansetron Inj 2 Mg/Ml Inj 2 Ml) 4 mg IV X1 ONE; Protocol Stop: 08/11/24 12:11 Last Admin: 08/11/24 14:11 Dose: 4 mg Documented By: SALINA Diagnosis Differential Diagnosis ED Complaint MDM: DKA, anion gap metabolic acidosis, asymptomatic pyuria
[2024-08-11 12:38] LABS: Lactate (Lactic Acid) 1.7 mMol/L (0.4-2.0)
[2024-08-11 12:39] LABS: Base Excess, Venous -21 (-3-3); O2 Saturation, Venous 74 % (96-97); PCO2, Venous 18 mmHg (36-56); PO2, Venous 45 mmHg (15-58); pH, Venous 7.12 (7.33-7.66)
[2024-08-11 12:41] LABS: Basophils # (Auto) 0.1 Thou/mm3 (0.0-0.2); Basophils % (Auto) 1 % (0-2.5); Eosinophils % (Auto) 0 % (0-10); Hemoglobin 13.5 g/dL (12.0-16.0); Immature Granulocytes % (Auto) 1 % (0-0); Immature Granulocytes Auto 0.09 Thou/mm3 (0.00-0.00); Lymphocytes # (Auto) 1.9 Thou/mm3 (1.0-4.8); Lymphocytes % (Auto) 15 % (10-50); Mean Corpuscular HGB Conc 32.1 g/dl (31.0-37.0); Mean Corpuscular Hemoglobin 25.8 pg (25.0-35.0); Mean Corpuscular Volume 80 fL (80-100); Monocytes # (Auto) 0.7 Thou/mm3 (0.0-0.8); Monocytes % (Auto) 5 % (0-12); Neutrophils # (Auto) 10.1 Thou/mm3 (1.8-7.7); Neutrophils % (Auto) 78 % (37-80); Nucleated Red Blood Cell % 0 /100 WBC (0); Platelet Count 459 Thou/mm3 (140-440); Red Blood Count 5.23 Miln/mm3 (4.00-5.20); White Blood Count 12.9 Thou/mm3 (3.6-11.0)
--- NOTE | 2024-08-11 12:59 | EKG_ITS ---
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
[2024-08-11 13:10] LABS: Alanine Aminotransferase < 7 U/L (10-49); Albumin, Serum 4.7 gm/dL (3.5-5.0); Albumin/Globulin Ratio 1.4 (1.2-2.2); Alkaline Phosphatase 168 U/L (46-116); Anion Gap 21 (7-16); Aspartate Amino Transferase 11 U/L (0-34); BUN/Creatinine Ratio 13 Ratio (12-20); Bilirubin,Total 0.2 mg/dL (0.3-1.2); Blood Urea Nitrogen 19 mg/dL (9-23); Calcium 8.7 mg/dL (8.3-10.6); Calcium (Corrected) 8.7 mg/dL (8.5-10.1); Chloride 106 mMol/L (98-107); Creatinine (Component) 1.5 mg/dL (0.6-1.3); Globulin 3.3 gm/dL (2.3-3.5); Glucose 194 mg/dL (74-106); Magnesium 2.1 mg/dL (1.6-2.6); Osmolality,Calculated 281 (275-295); Phosphorous 2.6 mg/dL (2.4-5.1); Potassium 4.5 mMol/L (3.4-5.1); Sodium 137 mMol/L (136-145); eGFR 49 See Note
[2024-08-11 13:25] LABS: Collection Type, Urine Clean Catch
[2024-08-11 13:36] LABS: Carbon Dioxide < 10.0 mMol/L (20.0-31.0)
[2024-08-11 13:41] LABS: Beta Hydroxybutyrate 5.1 mmol/L (<0.6)
[2024-08-11 13:56] LABS: HCG Qualitative,Urine Negative
[2024-08-11 13:58] LABS: Amphetamine/Methamp Scrn,U Negative (Negative); Barbiturate Screen,Urine Negative (Negative); Benzodiazepines Screen,Urine Negative (Negative); Benzoylecgonine Screen, Ur Negative (Negative); Fentanyl Screen,Urine Negative (Negative); Opiate Screen,Urine Negative (Negative); THC Screen,Urine Negative (Negative)
[2024-08-11 14:02] LABS: Bilirubin,Urine Negative (Negative); Blood,Urine 3+ (Negative); Budding Yeast,Urine Present; Clarity,Urine Turbid (Clear/Hazy); Color,Urine Lt-Yellow (Lt Yel-Yel); Glucose, Urine 3+ (Negative); Ketones,Urine 4+ (Negative); Leukocyte Esterase,Urine Positive (Negative); Nitrite,Urine Negative (Negative); PH,Urine 5.5 (5.0-7.0); Protein,Urine 1+ (Neg - Trace); RBC,Urine 9 /hpf (0-3); Specific Gravity,Urine 1.019 (1.001-1.035); Squamous Epithelial Cell,Urine 6 /hpf (0-5); Urobilinogen,Urine Negative mg/dL (0.0-1.0); WBC,Urine 11 /hpf (0-5)
[2024-08-11] MEDS: hydrOXYzine HCL 25 MG TABLET PO (14:09)
[2024-08-11] MEDS: ONDANSETRON INJ 2 MG/ML INJ 2 ML 4 MG IV (14:11)
[2024-08-11] MEDS: FAMOTIDINE INJ 10 MG/ML VIAL 2 ML 20 MG IVP (14:11)
[2024-08-11] MEDS: RINGERS LACTATED 1000 ML 1,000 ML 999 ML IV (14:15)
--- NOTE | 2024-08-11 14:29 | ESHP_ITS ---
<Statement entered by Theresa Huffman MD - 08/12/24 08:02> TOTAL CC TIME: 45 MIN I saw and evaluated the patient. I reviewed the resident?s note and agree with findings and plan as documented in the resident?s note. Upon my evaluation, this patient had a high probability of imminent or life- threatening deterioration due to DKA which required my direct attention, intervention, and personal management. This time is exclusive of time spent on procedures, which are documented separately if performed. Patient was seen and examined in the emergency room. Will start insulin drip and IV fluids. No obvious source of infection identified. Monitor electrolytes carefully. Replace as needed. Documentation for date of: 08/11/24 HPI History of Present Illness Chief complaint: tachycardia History of present illness: Patient is a 28 year old female with PMH of DM1 who presents to the ER for tachycardia and shortness of breath for the last 3 days. Associated with poor appetite, nausea and an episode of vomiting yesterday. Denies headache, fever, chest pain, stomach pain, dysuria, swelling in her legs. Patient is having insurance issues with obtaining an insulin pump and endorses struggling with her blood sugars at home. This morning, her blood sugar was 421 so she gave herself 7 units of insulin. Patient felt similar to previous DKA episodes and thinks the recent hot weather exacerbated her dehydration, so came to the ER. PMH: DM1, a1c 12 in Dec; diabetic neuropathy, anxiety Allergies: NKDA SH: lives with family. Social smoker (tobacco and THC), social drinker. PCP: Dr. Chavez at [facility] Meds: pepcid, venlafaxine, pregabalin, Degludac 25 units HS and ISS for mealtime Upon presentation to the ER, vitals notable for sinus tachycardia at 118. Chemistry panel shows HCO3 < 10 wtih an elevated anion gap of 21, elevated creatinine at 1.5 and BHB at 5.1. UA showed ketonuria and glucosuria. VBG shows metabolic acidosis with a pH of 7.12. She was given given 1L of NS, ondansetron, hydroxyzine and pepcid. Patient to be admitted to the ICU for DKA. Review of Systems Review of Systems Systems Reviewed: All systems reviewed, normal except as documented Exam Vital Signs Temp Pulse Resp BP Pulse Ox O2 Del Method 97.9 F 95 16 99/77 99 Nasal Cannula 08/11/24 13:57 08/11/24 14:19 08/11/24 14:19 08/11/24 14:19 08/11/24 14:19 08/11/24 14:19 Narrative Exam Constitutional: NAD. HEENT: NCAT. Mucous membranes dry. Respiratory: CTAB bilaterally. Cardiac: Tachycardic, sinus. Abdomen: Soft, non-distended, non-tender. MSK: No B/L LE edema. Skin: Warm, dry, intact. No obvious lesions. Results: Labs 08/11/24 12:20 08/11/24 12:20 Labs: Short CBC 08/11/24 Range/Units 12:20 WBC 12.9 H (3.6-11.0) Thou/mm3 Hgb 13.5 (12.0-16.0) g/dL Hct 42.0 (36.0-46.0) % Plt Count 459 H (140-440) Thou/mm3 BMP 08/11/24 12:20 Sodium 137 Potassium 4.5 Chloride 106 Carbon Dioxide < 10.0 L* BUN 19 Creatinine 1.5 H Glucose 194 H Calcium 8.7 Liver Function 08/11/24 Range/Units 12:20 Total Bilirubin 0.2 L (0.3-1.2) mg/dL AST 11 (0-34) U/L ALT < 7 L (10-49) U/L Alkaline Phosphatase 168 H (46-116) U/L Albumin 4.7 (3.5-5.0) gm/dL Urine 08/11/24 Range/Units 13:09 Urine Color Lt-Yellow (Lt Yel-Yel) Urine Clarity Turbid A (Clear/Hazy) Urine pH 5.5 (5.0-7.0) Ur Specific [place] 1.019 (1.001-1.035) Urine Protein 1+ A (Neg - Trace) Urine Glucose (UA) 3+ A (Negative) ABG Interpretation ABG results: 08/11/24 12:20 VBG pH 7.12 L VBG pCO2 18 L VBG pO2 45 VBG Base Excess -21 L Quality Measures Quality Measures none Medications Home Medications and Allergies Allergies Allergy/AdvReac Type Severity Reaction Status Date / Time No Known Allergies Allergy Verified 05/20/24 15:01 Visit Medications Acetaminophen (Acetaminophen 325 Mg Tablet) 650 mg PO Q6H PRN PRN Reason: PAIN SCALE 1-3 (mild Stop: 09/10/24 14:15 Dextrose (Dextrose 50%-Water Inj 50 Ml Syringe) 25 ml IV PRNMRX1 PRN PRN Reason: Blood Sugar - Low Lactated Ringer's (Lactated Ringers) 1,000 mls @ 999 mls/hr IV .Q1H1M ONE Stop: 08/11/24 14:30 Potassium Chloride (Kcl Ivpb) 10 meq in 100 mls @ 100 mls/hr IV .Q1H PRN PRN Reason: IF POTASSIUM LESS THAN 3.3 Stop: 09/10/24 14:15 Magnesium Sulfate (Magnesium Sulfate Ivpb) 2 gm in 50 mls @ 25 mls/hr IV .Q2H PRN PRN Reason: PER DKA PROTOCOL Stop: 09/10/24 14:15 Insulin Human Regular 100 unit (/ IV Miscellaneous Supplies) 100 mls @ 5.987 mls/hr IV .[id number] PRN; Protocol PRN Reason: PER PROTOCOL Stop: 09/10/24 14:15 Dextrose/Lactated Ringer's (D5-Lr) 1,000 mls @ 250 mls/hr IV .Q4H PRN PRN Reason: PER PROTOCOL Stop: 09/10/24 14:15 Lactated Ringer's (Lactated Ringers) 1,000 mls @ 250 mls/hr IV .Q4H PRN PRN Reason: PER PROTOCOL Stop: 08/12/24 14:15 Potassium Chloride 20 meq/ (Lactated Ringer's) 1,010 mls @ 250 mls/hr IV .Q4H3M PRN PRN Reason: K LEVEL 3.3 TO 5.3mM/L Stop: 09/10/24 14:15 Potassium Chloride 40 meq/ (Lactated Ringer's) 1,020 mls @ 250 mls/hr IV .Q4H5M PRN PRN Reason: K LEVEL < 3.3 mM/L Stop: 09/10/24 14:15 Potassium Chloride 40 meq/ (Dextrose/Lactated Ringer's) 1,020 mls @ 250 mls/hr IV .Q4H5M PRN PRN Reason: K LEVEL < 3.3mM/L Stop: 09/10/24 14:15 Potassium Cl/Dextrose/Lact Ringer's (Kcl 20 Meq/L In D5-Lr) 20 meq in 1,000 mls @ 250 mls/hr IV .Q4H PRN PRN Reason: K LEVEL 3.3 TO 5.3 mM/L Stop: 09/10/24 14:15 Potassium Chloride (Kcl Ivpb) 10 meq in 100 mls @ 50 mls/hr IV PRN PRN PRN Reason: K LEVEL 3.3 to 5.3 & BG > 200 Stop: 09/10/24 14:15 Potassium Phosphate (Pot Phos 15 Mmol In Ns 250 Ml) 15 mmol in 250 mls @ 62.5 mls/hr IV PRN PRN PRN Reason: Phosphate <= 1mg/dL Stop: 09/10/24 14:15 Sodium Phosphate 15 mmol/ (Sodium Chloride) 255 mls @ 62.5 mls/hr IV .Q4H5M PRN PRN Reason: Phosphate <= 1mg/dL and K> than 5.3 Stop: 09/10/24 14:15 Ondansetron HCl (Ondansetron Inj 2 Mg/Ml Inj 2 Ml) 4 mg IV Q6H PRN; Protocol PRN Reason: NAUSEA OR VOMITING Stop: 09/10/24 14:15 Sodium Bicarbonate (Sodium Bicarb Inj 8.4% Syr 50 Ml Syringe) 50 ml IV PRN PRN PRN Reason: For ph <= to 7.0 Stop: 09/10/24 14:15 Discontinued Medications Famotidine (Famotidine Inj 10 Mg/Ml Vial 2 Ml) 20 mg IVP X1 ONE Stop: 08/11/24 12:11 Last Admin: 08/11/24 14:11 Dose: 20 mg Hydroxyzine HCl (Hydroxyzine Hcl 25 Mg Tablet) 25 mg PO X1 ONE Stop: 08/11/24 12:52 Last Admin: 08/11/24 14:09 Dose: 25 mg Lactated Ringer's (Lactated Ringers) 1,000 mls @ 999 mls/hr IV .Q1H1M ONE Stop: 08/11/24 13:11 Last Admin: 08/11/24 14:15 Dose: 999 mls/hr Ondansetron HCl (Ondansetron Inj 2 Mg/Ml Inj 2 Ml) 4 mg IV X1 ONE; Protocol Stop: 08/11/24 12:11 Last Admin: 08/11/24 14:11 Dose: 4 mg Assessment & Plan Plan Patient is a 28 year old female with PMH of DM1 admitted to the ICU for DKA. 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 Then will calculate insulin requirement and give as bolus with 2 hour overlap with insulin drip with food, then discontinue insulin drip RRX: Trigger is insulin non-compliance. EKG not suggestive of acute MT. No infection. Heme Problem: DDX: No acute problems DX: RX: RRX: ID Problem: No acute problems DDX: DX: RX: RRX: Health Maintenance Disposition: Admit to ICU for DKA Diet and fluids: IVF 250/hrr DVT prophylaxis: lovenox 40 Qday GI prophylaxis: none Lines: PIV CODE STATUS: FULL I have reviewed and discussed the patient's care with my attending, Dr. Armida Corona MD PGY-3
[2024-08-11] MEDS: KCL 20 mEq/L in D5-LR 20 MEQ/1,000 ML BAG 250 MEQ IV (16:36)
[2024-08-11] MEDS: INSULIN REG 100 UNITS/100 ML 100 UNIT in PRE-MIXED 1 BAG IV (16:37)
[2024-08-11 18:27] LABS: Base Excess, Venous -13 (-3-3); O2 Saturation, Venous 72 % (96-97); PCO2, Venous 25 mmHg (36-56); PO2, Venous 41 mmHg (15-58); pH, Venous 7.28 (7.33-7.66)
[2024-08-11 18:54] LABS: Anion Gap 12 (7-16); BUN/Creatinine Ratio 10 Ratio (12-20); Blood Urea Nitrogen 13 mg/dL (9-23); Calcium 8.2 mg/dL (8.3-10.6); Calcium (Corrected) 8.2 mg/dL (8.5-10.1); Chloride 111 mMol/L (98-107); Creatinine (Component) 1.3 mg/dL (0.6-1.3); Estimated Creatinine Clearance 54.2 mL/min (>60); Glucose 191 mg/dL (74-106); Osmolality,Calculated 278 (275-295); Phosphorous 1.7 mg/dL (2.4-5.1); Potassium 4.8 mMol/L (3.4-5.1); Sodium 137 mMol/L (136-145); eGFR 58 See Note
[2024-08-11 18:55] LABS: Carbon Dioxide 14.3 mMol/L (20.0-31.0)
[2024-08-11] MEDS: POT CHL ADDITIVE 20 MEQ in DEXTROSE 5%-LACTATED RINGERS 990 ML 250 MEQ IV (20:45)
[2024-08-11 22:39] LABS: Lactate (Lactic Acid) 0.9 mMol/L (0.4-2.0)
[2024-08-11 22:40] LABS: Base Excess, Venous -9 (-3-3); O2 Saturation, Venous 97 % (96-97); PCO2, Venous 31 mmHg (36-56); PO2, Venous 78 mmHg (15-58); pH, Venous 7.32 (7.33-7.66)
[2024-08-12] VITALS (26 sets, daily range): BP systolic 102–130; BP diastolic 62–91; PULSE 77–96; RESP 10–21; TEMP 36.7–37.4; O2SAT 98–100; BMI 22.1
[2024-08-12] MEDS: POT CHL ADDITIVE 20 MEQ in DEXTROSE 5%-LACTATED RINGERS 990 ML 250 MEQ IV ×2 (01:00→05:25)
[2024-08-12 02:52] LABS: Base Excess, Venous -7 (-3-3); Lactate (Lactic Acid) 0.8 mMol/L (0.4-2.0); O2 Saturation, Venous 97 % (96-97); PCO2, Venous 31 mmHg (36-56); PO2, Venous 69 mmHg (15-58); pH, Venous 7.35 (7.33-7.66)
[2024-08-12 03:19] LABS: Albumin, Serum 3.5 gm/dL (3.5-5.0); Anion Gap 8 (7-16); BUN/Creatinine Ratio 13 Ratio (12-20); Blood Urea Nitrogen 12 mg/dL (9-23); Calcium 8.2 mg/dL (8.3-10.6); Calcium (Corrected) 8.6 mg/dL (8.5-10.1); Carbon Dioxide 16.2 mMol/L (20.0-31.0); Chloride 114 mMol/L (98-107); Creatinine (Component) 0.9 mg/dL (0.6-1.3); Estimated Creatinine Clearance 78.4 mL/min (>60); Glucose 101 mg/dL (74-106); Magnesium 1.6 mg/dL (1.6-2.6); Osmolality,Calculated 275 (275-295); Phosphorous 1.9 mg/dL (2.4-5.1); Potassium 4.1 mMol/L (3.4-5.1); Sodium 138 mMol/L (136-145); eGFR > 60 See Note
[2024-08-12 07:06] LABS: Base Excess, Venous -7 (-3-3); Lactate (Lactic Acid) 0.7 mMol/L (0.4-2.0); O2 Saturation, Venous 90 % (96-97); PCO2, Venous 31 mmHg (36-56); PO2, Venous 50 mmHg (15-58); pH, Venous 7.36 (7.33-7.66)
[2024-08-12 07:14] LABS: Basophils # (Auto) 0.1 Thou/mm3 (0.0-0.2); Basophils % (Auto) 1 % (0-2.5); Eosinophils # (Auto) 0.1 Thou/mm3 (0.0-0.5); Eosinophils % (Auto) 2 % (0-10); Hematocrit 32.1 % (36.0-46.0); Hemoglobin 10.6 g/dL (12.0-16.0); Immature Granulocytes % (Auto) 0 % (0-0); Immature Granulocytes Auto 0.03 Thou/mm3 (0.00-0.00); Lymphocytes # (Auto) 2.3 Thou/mm3 (1.0-4.8); Lymphocytes % (Auto) 33 % (10-50); Mean Corpuscular Volume 79 fL (80-100); Monocytes # (Auto) 0.5 Thou/mm3 (0.0-0.8); Monocytes % (Auto) 7 % (0-12); Neutrophils # (Auto) 4.1 Thou/mm3 (1.8-7.7); Neutrophils % (Auto) 58 % (37-80); Nucleated Red Blood Cell % 0 /100 WBC (0); Platelet Count 346 Thou/mm3 (140-440); RDW Standard Deviation 40.4 fL (36.4-46.3); Red Blood Count 4.07 Miln/mm3 (4.00-5.20); White Blood Count 7.1 Thou/mm3 (3.6-11.0)
[2024-08-12 07:36] LABS: Albumin, Serum 3.3 gm/dL (3.5-5.0); Anion Gap 8 (7-16); BUN/Creatinine Ratio 13 Ratio (12-20); Blood Urea Nitrogen 13 mg/dL (9-23); Calcium 7.9 mg/dL (8.3-10.6); Calcium (Corrected) 8.5 mg/dL (8.5-10.1); Chloride 115 mMol/L (98-107); Estimated Creatinine Clearance 70.5 mL/min (>60); Glucose 130 mg/dL (74-106); Magnesium 1.6 mg/dL (1.6-2.6); Osmolality,Calculated 287 (275-295); Phosphorous 1.9 mg/dL (2.4-5.1); Potassium 3.7 mMol/L (3.4-5.1); Sodium 143 mMol/L (136-145); eGFR > 60 See Note
[2024-08-12] MEDS: INSULIN GLARGINE (Lantus) 5 UNIT/0.05 ML (PER 5 UNITS) 15 UNIT SC (09:00)
[2024-08-12] MEDS: DEXTROSE 5%-LACTATED RINGERS 1,000 ML 250 ML IV (09:48)
[2024-08-12] MEDS: ENOXAPARIN SOD INJ 40 MG/0.4 ML SYRINGE SC (09:48)
--- NOTE | 2024-08-12 09:58 | ESPR_ITS ---
<Statement entered by Theresa Huffman MD - 08/13/24 10:11> TOTAL TIME: 45MINUTES ON DIRECT MEDICAL CARE, MANAGEMENT - COORDINATION AND COUNSELING > 50% OF TOTAL TIME I saw and evaluated the patient. I reviewed the resident?s note and agree with findings and plan as documented in the resident?s note. She is feeling better, able to tolerate a full p.o. diet. Transitioned off the insulin drip. Stable to transfer to [facility] Documentation for date of: 08/12/24 Subjective Subjective Interval history: Patient is a 28 year old female with PMH of DM1 who presents to the ER for tachycardia and shortness of breath for the last 3 days. Associated with poor appetite, nausea and an episode of vomiting yesterday. Denies headache, fever, chest pain, stomach pain, dysuria, swelling in her legs. Patient is having insurance issues with obtaining an insulin pump and endorses struggling with her blood sugars at home. This morning, her blood sugar was 421 so she gave herself 7 units of insulin. Patient felt similar to previous DKA episodes and thinks the recent hot weather exacerbated her dehydration, so came to the ER. Upon presentation to the ER, vitals notable for sinus tachycardia at 118. Chemistry panel shows HCO3 < 10 wtih an elevated anion gap of 21, elevated creatinine at 1.5 and BHB at 5.1. UA showed ketonuria and glucosuria. VBG shows metabolic acidosis with a pH of 7.12. She was given given 1L of NS, ondansetron, hydroxyzine and pepcid. Patient to be admitted to the ICU for DKA. 08/12/2024: Patient was seen and examined in the ICU today. There were no major overnight events however patient glucose dropped below 100 which triggered the protocol to stop the insulin drip around 2 AM. Her gap had closed twice before that time however her bicarb was still around 16. This morning her labs revealed continued close gap with a bicarb in the 20s and her sugar in the 130s and patient was hungry and willing to try diet. 15 units of Lantus was administered along with food and dextrose IV fluids. Patient tolerated diet well and was subsequently downgraded to floors with Lantus 15 units daily and sliding scale insulin. Exam Vital Signs Temp Pulse Resp BP Pulse Ox O2 Del Method 98.0 F 89 16 122/81 98 Room Air 08/12/24 08:00 08/12/24 09:00 08/12/24 08:00 08/12/24 08:00 08/12/24 08:00 08/12/24 08:00 Narrative Exam Constitutional: Well nourished and in no acute distress CVS: RRR, S1 and S2 present, no murmurs, rubs or gallops . RESP: CTAB, no SOB, no rales, rhonchi or wheezing. No respiratory Distress GI: Normal BS, Nontender/Nondistended. MSK: Full range of motion, No trauma or deformities or masses. Skin: Warm to touch, Dry. No rashes or lesions. No hematomas Neuro: eddy current inspector II-XII grossly intact. Sensation grossly intact. Psych: (AAO) x3 . Appropriate mood and affect. Objective Labs 08/12/24 06:55 08/12/24 06:55 Labs: Laboratory Results - last 24 hr 08/11/24 08/11/24 08/11/24 12:20 13:09 18:18 WBC 12.9 H RBC 5.23 H Hgb 13.5 Hct 42.0 MCV 80 MCH 25.8 MCHC 32.1 RDW Std Deviation 41.0 Plt Count 459 H Neut % (Auto) 78 Lymph % (Auto) 15 Walker % (Auto) 5 Eos % (Auto) 0 Baso % (Auto) 1 Neut # (Auto) 10.1 H Lymph # (Auto) 1.9 Walker # (Auto) 0.7 Eos # (Auto) 0.0 Baso # (Auto) 0.1 Immature Gran # (Auto) 0.09 H Absolute Nucleated RBC 0.00 Immature Gran % 1 H Nucleated RBC % 0 VBG pH 7.12 L 7.28 L VBG pCO2 18 L 25 L VBG pO2 45 41 VBG O2 Sat (Leonora) 74 L 72 L VBG Base Excess -21 L -13 L Sodium 137 137 Potassium 4.5 4.8 Chloride 106 111 H Carbon Dioxide < 10.0 L* 14.3 L* Anion Gap 21 H 12 BUN 19 13 Creatinine 1.5 H 1.3 Estim Creat Clear Calc Not Performed. 54.2 L eGFR 49 L 58 L BUN/Creatinine Ratio 13 10 L Glucose 194 H 191 H Calculated Osmolality 281 278 Lactic Acid 1.7 1.0 Calcium 8.7 8.2 L Corrected Calcium 8.7 8.2 L Phosphorus 2.6 1.7 L Magnesium 2.1 Total Bilirubin 0.2 L AST 11 ALT < 7 L Alkaline Phosphatase 168 H Total Protein 8.0 Albumin 4.7 4.0 D Globulin 3.3 Albumin/Globulin Ratio 1.4 Beta-Hydroxybutyrate/Acetoacetate 5.1 H Ur Collection Type Clean Catch Urine Color Lt-Yellow Urine Clarity Turbid A Urine pH 5.5 Ur Specific [place] 1.019 Urine Protein 1+ A Urine Glucose (UA) 3+ A Urine Ketones 4+ A Urine Blood 3+ A Urine Nitrite Negative Urine Bilirubin Negative Urine Urobilinogen (Auto) Negative Ur Leukocyte Esterase Positive Urine RBC 9 H Urine WBC 11 H Ur Squamous Epith Cells 6 H Urine Bacteria None Urine Yeast (Budding) Present A Urine HCG, Qual Negative Urine Opiates Screen Negative Urine Fentanyl Screen Negative Ur Barbiturates Screen Negative U Amphetamin/Meth Scrn Negative U Benzodiazepines Scrn Negative U Cocaine Metab Screen Negative U Marijuana (THC) Screen Negative 08/11/24 08/12/24 08/12/24 22:23 02:34 06:55 WBC 7.1 D RBC 4.07 Hgb 10.6 L D Hct 32.1 L MCV 79 L MCH 26.0 MCHC 33.0 RDW Std Deviation 40.4 Plt Count 346 D Neut % (Auto) 58 Lymph % (Auto) 33 Walker % (Auto) 7 Eos % (Auto) 2 Baso % (Auto) 1 Neut # (Auto) 4.1 Lymph # (Auto) 2.3 Walker # (Auto) 0.5 Eos # (Auto) 0.1 Baso # (Auto) 0.1 Immature Gran # (Auto) 0.03 H Absolute Nucleated RBC 0.00 Immature Gran % 0 Nucleated RBC % 0 VBG pH 7.32 L 7.35 7.36 VBG pCO2 31 L 31 L 31 L VBG pO2 78 H D 69 H 50 VBG O2 Sat (Leonora) 97 97 90 L VBG Base Excess -9 L -7 L -7 L Sodium 138 143 Potassium 4.1 D 3.7 Chloride 114 H 115 H Carbon Dioxide 16.2 L 20.0 Anion Gap 8 8 BUN 12 13 Creatinine 0.9 1.0 Estim Creat Clear Calc 78.4 70.5 eGFR > 60 > 60 BUN/Creatinine Ratio 13 13 Glucose 101 D 130 H Calculated Osmolality 275 287 Lactic Acid 0.9 0.8 0.7 Calcium 8.2 L 7.9 L Corrected Calcium 8.6 8.5 Phosphorus 1.9 L 1.9 L Magnesium 1.6 1.6 Total Bilirubin AST ALT Alkaline Phosphatase Total Protein Albumin 3.5 D 3.3 L Globulin Albumin/Globulin Ratio Beta-Hydroxybutyrate/Acetoacetate Ur Collection Type Urine Color Urine Clarity Urine pH Ur Specific [place] Urine Protein Urine Glucose (UA) Urine Ketones Urine Blood Urine Nitrite Urine Bilirubin Urine Urobilinogen (Auto) Ur Leukocyte Esterase Urine RBC Urine WBC Ur Squamous Epith Cells Urine Bacteria Urine Yeast (Budding) Urine HCG, Qual Urine Opiates Screen Urine Fentanyl Screen Ur Barbiturates Screen U Amphetamin/Meth Scrn U Benzodiazepines Scrn U Cocaine Metab Screen U Marijuana (THC) Screen ABG Interpretation ABG results: 08/11/24 08/11/24 08/11/24 12:20 18:18 22:23 VBG pH 7.12 L 7.28 L 7.32 L VBG pCO2 18 L 25 L 31 L VBG pO2 45 41 78 H D VBG Base Excess -21 L -13 L -9 L 08/12/24 08/12/24 02:34 06:55 VBG pH 7.35 7.36 VBG pCO2 31 L 31 L VBG pO2 69 H 50 VBG Base Excess -7 L -7 L Quality Measures Quality Measures none Assessment & Plan Assessment Current Active Medications: Generic Name Dose Route Start Last Admin Trade Name Freq PRN Reason Stop Dose Admin Acetaminophen 650 mg 08/11/24 14:16 Acetaminophen 325 Mg Tablet PO 09/10/24 14:15 Q6H PRN PAIN SCALE 1-3 (mild Enoxaparin Sodium 40 mg 08/12/24 09:00 08/12/24 09:48 Enoxaparin Sod Inj 40 Mg/0.4 Ml Syringe SC 08/26/24 08:59 40 mg QDAY SARAH Administration Dextrose/Lactated Ringer's 1,000 mls @ 250 mls/hr 08/11/24 14:16 08/12/24 09:48 D5-Lr IV 09/10/24 14:15 250 mls/hr .Q4H PRN Administration PER PROTOCOL Lactated Ringer's 1,000 mls @ 250 mls/hr 08/11/24 14:16 Lactated Ringers IV 08/12/24 14:15 .Q4H PRN PER PROTOCOL Potassium Chloride 20 meq/ 1,000 mls @ 250 mls/hr 08/11/24 20:37 08/12/24 05:25 Dextrose/Lactated Ringer's IV 09/10/24 20:36 250 mls/hr .Q4H PRN Administration K LEVEL 3.3 TO 5.3 mM/L Ondansetron HCl 4 mg 08/11/24 14:16 Ondansetron Inj 2 Mg/Ml Inj 2 Ml IV 09/10/24 14:15 Q6H PRN NAUSEA OR VOMITING Protocol Plan Patient is a 28 year old female with PMH of DM1 admitted to the ICU for DKA. 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 The insulin was stopped around 2 am last night due to low blood sugars. RX: IV fluids donavan be continued as she s started on diet and given the lantus 15 bolus. Sliding scale added. GI Problem: No acute problems Endo Problem: Diabetic Ketoacidosis, DM1 DDX: DX: renal panel, blood sugar checks Q1H, VBG Q4H RX: IVF at 250/hr for fluid resuscutation, insulin ggt for goal blood sugar 150- 200 until anion gap closes x 2 and HCO3 > 20. Then will calculate insulin requirement and give as bolus with 2 hour overlap with insulin drip with food, then discontinue insulin drip RRX: Trigger is insulin non-compliance. EKG not suggestive of acute LA. No infection. Heme Problem: No acute problems ID Problem: No acute problems Health Maintenance Disposition: Patient will be transitioned to bolus insulin and downgraded later today Diet and fluids: full liquid carb consistent diet DVT prophylaxis: lovenox 40 Qday GI prophylaxis: none Lines: PIV CODE STATUS: FULL I discussed patient's care with attending physician, Dr Armida Diaz PGY3
[2024-08-12 10:27] LABS: Base Excess, Venous -6 (-3-3); O2 Saturation, Venous 100 % (96-97); PCO2, Venous 24 mmHg (36-56); PO2, Venous 114 mmHg (15-58); pH, Venous 7.44 (7.33-7.66)
[2024-08-12 10:56] LABS: Albumin, Serum 3.2 gm/dL (3.5-5.0); Anion Gap 9 (7-16); BUN/Creatinine Ratio 11 Ratio (12-20); Blood Urea Nitrogen 10 mg/dL (9-23); Calcium 7.9 mg/dL (8.3-10.6); Calcium (Corrected) 8.5 mg/dL (8.5-10.1); Chloride 115 mMol/L (98-107); Creatinine (Component) 0.9 mg/dL (0.6-1.3); Estimated Creatinine Clearance 74.9 mL/min (>60); Glucose 150 mg/dL (74-106); Magnesium 1.6 mg/dL (1.6-2.6); Osmolality,Calculated 286 (275-295); Phosphorous 1.9 mg/dL (2.4-5.1); Potassium 3.9 mMol/L (3.4-5.1); Sodium 143 mMol/L (136-145); eGFR > 60 See Note
[2024-08-12] MEDS: INSULIN LISPRO (AdmeLOG) 1 UNIT/0.01 ML UNIT SC (13:08)
--- NOTE | 2024-08-12 16:31 | ESPR_ITS ---
<Statement entered by Magdalene Gooden MD - 08/12/24 17:54> Patient is a 28-year-old female with past medical history significant for uncontrolled type 1 diabetes, diabetic neuropathy who was admitted to ICU yesterday for DKA management and downgraded today to medicine floor. Patient's anion gap closed x 2, however has been having fluctuating glucose checks as patient has not been eating. Patient will need strong follow-up outpatient due to the difficulties with receiving an insulin pump. Will continue to monitor and check patient's glucose AC. I discussed with and supervised the internet programmer physician who took care of this patient. I personally saw and examined the patient and discussed the assessment and plan with the entire medicine team, including my attending Dr. Roach, I agree with most of the assessment and plan as documented below Magdalene Gooden M.D. PGY-2 Disclaimer: Despite multiple revisions, due to the dictation software being used, the document bellow may not be free of grammatical errors including phonetic/typographic errors. However, this does not deter from our commitment to providing health care in the patient's best interest in mind. Documentation for date of: 08/12/24 Subjective Subjective Interval history: Patient downgraded from ICU to floors today, with no acute overnight events in ICU. Glucose noted to drop below 100 for which insulin drip was stopped at around 2 AM. Since then anion gap has remaied closed, HCO3 of 19. She was given 15 units glargine and ammendable to trying to eat. However, around 4 PM notified by nursing staff that sugars were in the 40s and that patient did not each much of her food. Sugars improved to 95 with juice and crackers. Also spoke to pharmacy and given intricacies of insulin pump, will likely discharge patient on basal and mealtime insulins with instructions to follow-up with PCP for pump. Exam Vital Signs Temp Pulse Resp BP Pulse Ox O2 Del Method 98.0 F 81 18 130/87 H 99 Room Air 08/12/24 08:00 08/12/24 15:01 08/12/24 15:01 08/12/24 15:08/12/24 15:01 08/12/24 08:00 Narrative Exam General: AOx3, no acute distress, able to speak full sentences HEENT: NC/AT, mucous membranes moist, bilateral sclera anicteric Cardiovascular: regular rate and rhythm, S1/S2 present, no murmurs appreciated Pulmonary: clear to auscultation bilaterally, no rales/rhonchi/wheezes Abdominal: soft, non-tender, non-distended, no rebound/guarding, normal bowel sounds present Musculoskeletal: normal ROM, no peripheral edema Skin: warm and dry, intact, no rashes Neuro: CN II-XII intact, no focal deficits Objective Labs 08/13/24 04:54 08/13/24 04:54 Labs: Laboratory Results - last 24 hr 08/11/24 08/11/24 08/12/24 18:18 22:23 02:34 WBC RBC Hgb Hct MCV MCH MCHC RDW Std Deviation Plt Count Neut % (Auto) Lymph % (Auto) [place] % (Auto) Eos % (Auto) Baso % (Auto) Neut # (Auto) Lymph # (Auto) [place] # (Auto) Eos # (Auto) Baso # (Auto) Immature Gran # (Auto) Absolute Nucleated RBC Immature Gran % Nucleated RBC % VBG pH 7.28 L 7.32 L 7.35 VBG pCO2 25 L 31 L 31 L VBG pO2 41 78 H D 69 H VBG O2 Sat (Leonora) 72 L 97 97 VBG Base Excess -13 L -9 L -7 L Sodium 137 138 Potassium 4.8 4.1 D Chloride 111 H 114 H Carbon Dioxide 14.3 L* 16.2 L Anion Gap 12 8 BUN 13 12 Creatinine 1.3 0.9 Estim Creat Clear Calc 54.2 L 78.4 eGFR 58 L > 60 BUN/Creatinine Ratio 10 L 13 Glucose 191 H 101 D Calculated Osmolality 278 275 Lactic Acid 1.0 0.9 0.8 Calcium 8.2 L 8.2 L Corrected Calcium 8.2 L 8.6 Phosphorus 1.7 L 1.9 L Magnesium 1.6 Albumin 4.0 D 3.5 D 08/12/24 08/12/24 06:55 10:09 WBC 7.1 D RBC 4.07 Hgb 10.6 L D Hct 32.1 L MCV 79 L MCH 26.0 MCHC 33.0 RDW Std Deviation 40.4 Plt Count 346 D Neut % (Auto) 58 Lymph % (Auto) 33 [place]ne % (Auto) 7 Eos % (Auto) 2 Baso % (Auto) 1 Neut # (Auto) 4.1 Lymph # (Auto) 2.3 [place]ne # (Auto) 0.5 Eos # (Auto) 0.1 Baso # (Auto) 0.1 Immature Gran # (Auto) 0.03 H Absolute Nucleated RBC 0.00 Immature Gran % 0 Nucleated RBC % 0 VBG pH 7.36 7.44 VBG pCO2 31 L 24 L VBG pO2 50 114 H D VBG O2 Sat (Leonora) 90 L 100 H VBG Base Excess -7 L -6 L Sodium 143 143 Potassium 3.7 3.9 Chloride 115 H 115 H Carbon Dioxide 20.0 19.0 L Anion Gap 8 9 BUN 13 10 Creatinine 1.0 0.9 Estim Creat Clear Calc 70.5 74.9 eGFR > 60 > 60 BUN/Creatinine Ratio 13 11 L Glucose 130 H 150 H Calculated Osmolality 287 286 Lactic Acid 0.7 1.0 Calcium 7.9 L 7.9 L Corrected Calcium 8.5 8.5 Phosphorus 1.9 L 1.9 L Magnesium 1.6 1.6 Albumin 3.3 L 3.2 L ABG Interpretation ABG results: 08/11/24 08/11/24 08/11/24 12:20 18:18 22:23 VBG pH 7.12 L 7.28 L 7.32 L VBG pCO2 18 L 25 L 31 L VBG pO2 45 41 78 H D VBG Base Excess -21 L -13 L -9 L 08/12/24 08/12/24 08/12/24 02:34 06:55 10:09 VBG pH 7.35 7.36 7.44 VBG pCO2 31 L 31 L 24 L VBG pO2 69 H 50 114 H D VBG Base Excess -7 L -7 L -6 L Quality Measures Quality Measures none Assessment & Plan Assessment Current Active Medications: Generic Name Dose Route Start Last Admin Trade Name Freq PRN Reason Stop Dose Admin Acetaminophen 650 mg 08/11/24 14:16 Acetaminophen 325 Mg Tablet PO 09/10/24 14:15 Q6H PRN PAIN SCALE 1-3 (mild Dextrose 25 ml 08/12/24 10:48 Dextrose 50%-Water Inj 50 Ml Syringe IV 09/11/24 10:47 Q15MIN PRN BG 50-70 responsive npo pt Dextrose 50 ml 08/12/24 10:48 Dextrose 50%-Water Inj 50 Ml Syringe IV 09/11/24 10:47 Q15MIN PRN BG <50 OR BG <70 & pt unresponsive Enoxaparin Sodium 40 mg 08/12/24 09:00 08/12/24 09:48 Enoxaparin Sod Inj 40 Mg/0.4 Ml Syringe SC 08/26/24 08:59 40 mg QDAY SARAH Administration Glucagon 1 mg 08/12/24 10:48 Glucagon Inj 1 Mg Vial IM Q15MIN PRN BG <70, and no IV access Dextrose/Lactated Ringer's 1,000 mls @ 250 mls/hr 08/11/24 14:16 08/12/24 09:48 D5-Lr IV 09/10/24 14:15 250 mls/hr .Q4H PRN Administration PER PROTOCOL Potassium Chloride 20 meq/ 1,000 mls @ 250 mls/hr 08/11/24 20:37 08/12/24 05:25 Dextrose/Lactated Ringer's IV 09/10/24 20:36 250 mls/hr .Q4H PRN Administration K LEVEL 3.3 TO 5.3 mM/L Insulin Glargine 15 unit 08/13/24 09:00 Insulin Glargine (Lantus) 5 Unit/0.05 Ml (Per 5 Units) SC 09/12/24 08:59 QDAY SARAH Insulin Human Lispro 0 unit 08/12/24 11:30 08/12/24 13:08 Insulin Lispro (Admelog) 1 Unit/0.01 Ml Unit SC 09/11/24 11:29 1 unit AC SARAH Administration Protocol Ondansetron HCl 4 mg 08/11/24 14:16 Ondansetron Inj 2 Mg/Ml Inj 2 Ml IV 09/10/24 14:15 Q6H PRN NAUSEA OR VOMITING Protocol Pregabalin 75 mg 08/12/24 21:00 Pregabalin 75 Mg Capsule PO 09/11/24 20:59 HS [facility] Plan Radha Stewart is a 28-year-old female with a past medical history of uncontrolled type 1 diabetes mellitus, diabetic neuropathy, who was admitted to the ICU on 08/11 for DKA and was downgraded to floors on 08/12. #Diabetic ketoacidosis, resolved #Anion gap metabolic acidosis secondary to DKA, resolved #Type 1 diabetes, uncontrolled Presented due to tachycardia and shortness of breath for 3 days with associated poor appetite, nausea and an episode of vomiting. Having insurance issues with obtaining an insulin pump and endorses struggling with her blood sugars at home. On morning of admission, blood sugar was 421 and gave herself 7 units of insulin. [place] similar to previous DKA episodes and thinks recent hot weather exacerbated dehydration and came to ER. ? Glargine 15 units ? SSI ? Hypoglycemic protocol in place #Acute kidney injury, likely prerenal, resolved Was previously on IVF but now DC'd as patient on diet #Diabetic neuropathy ? Pregabalin 75 mg p.o. HS Health maintenance: Disposition: continued management of hyperglycemia Diet and fluids: carb consistent low diet DVT prophylaxis: lovenox 40 Qday GI prophylaxis: none Lines: PIV CODE STATUS: FULL ----- Plan discussed with attending physician Dr. Roach and senior resident physician Dr. Giacomo Beach MD PGY-1 Internal Medicine Attending Provider Attestation/Addendum I have discussed and was present for the essential components of the history, physical examination, diagnosis, and treatment plan with the resident. I agree with the patient's care as documented by the resident and amended herein by me. Alpesh Roach DO. Although this document has been carefully reviewed, there may still be some phonetic and other typographical errors. These errors are purely grammatical due to imperfections in the software program and should not be construed in any way to compromise the substance of the patient's medical care during this visit.
[2024-08-12] MEDS: PREGABALIN 75 MG CAPSULE PO (21:02)
[2024-08-13] VITALS: BP 126/82; PULSE 81; PULSE 94; RESP 16; TEMP 37.5; O2SAT 98
[2024-08-13 03:59] VITALS: PULSE 89
[2024-08-13 04:00] VITALS: BP 129/84; PULSE 98; RESP 16; TEMP 36.8; O2SAT 98
[2024-08-13 05:22] VITALS: BMI 22.1
[2024-08-13 05:42] LABS: Basophils % (Auto) 1 % (0-2.5); Eosinophils # (Auto) 0.1 Thou/mm3 (0.0-0.5); Eosinophils % (Auto) 2 % (0-10); Hematocrit 31.9 % (36.0-46.0); Hemoglobin 10.7 g/dL (12.0-16.0); Immature Granulocytes % (Auto) 0 % (0-0); Immature Granulocytes Auto 0.02 Thou/mm3 (0.00-0.00); Lymphocytes # (Auto) 2.9 Thou/mm3 (1.0-4.8); Lymphocytes % (Auto) 49 % (10-50); Mean Corpuscular HGB Conc 33.5 g/dl (31.0-37.0); Mean Corpuscular Hemoglobin 26.1 pg (25.0-35.0); Mean Corpuscular Volume 78 fL (80-100); Monocytes # (Auto) 0.5 Thou/mm3 (0.0-0.8); Monocytes % (Auto) 8 % (0-12); Neutrophils # (Auto) 2.3 Thou/mm3 (1.8-7.7); Neutrophils % (Auto) 40 % (37-80); Nucleated Red Blood Cell % 0 /100 WBC (0); Platelet Count 315 Thou/mm3 (140-440); RDW Standard Deviation 39.8 fL (36.4-46.3); White Blood Count 5.8 Thou/mm3 (3.6-11.0)
[2024-08-13 06:15] LABS: Alanine Aminotransferase < 7 U/L (10-49); Albumin, Serum 3.4 gm/dL (3.5-5.0); Albumin/Globulin Ratio 1.5 (1.2-2.2); Alkaline Phosphatase 116 U/L (46-116); Anion Gap 12 (7-16); Aspartate Amino Transferase 15 U/L (0-34); BUN/Creatinine Ratio 8 Ratio (12-20); Bilirubin,Total 0.2 mg/dL (0.3-1.2); Blood Urea Nitrogen 6 mg/dL (9-23); Calcium (Corrected) 8.5 mg/dL (8.5-10.1); Carbon Dioxide 23.4 mMol/L (20.0-31.0); Chloride 109 mMol/L (98-107); Creatinine (Component) 0.8 mg/dL (0.6-1.3); Estimated Creatinine Clearance 84.3 mL/min (>60); Globulin 2.3 gm/dL (2.3-3.5); Glucose 164 mg/dL (74-106); Osmolality,Calculated 288 (275-295); Potassium 3.3 mMol/L (3.4-5.1); Sodium 144 mMol/L (136-145); Total Protein 5.7 gm/dL (5.7-8.2); eGFR > 60 See Note
--- NOTE | 2024-08-13 06:20 | PC.NURSE ---
Dr. Liang made aware that patient's potassium dropped from 3.9 to 3.3.
[2024-08-13 07:52] VITALS: BP 117/81; PULSE 99; RESP 17; TEMP 36.6; O2SAT 99
[2024-08-13 08:00] VITALS: PULSE 89
[2024-08-13] MEDS: INSULIN GLARGINE (Lantus) 5 UNIT/0.05 ML (PER 5 UNITS) 15 UNIT SC (09:18)
[2024-08-13] MEDS: ENOXAPARIN SOD INJ 40 MG/0.4 ML SYRINGE SC (09:19)
[2024-08-13] MEDS: POTASSIUM CHLORIDE 20 mEq TABCR 40 MEQ PO (09:20)
--- NOTE | 2024-08-13 09:46 | PC.SS ---
[employer] [employer] conducted bedside contact with the patient conduct initial assessment and to discuss discharge planning.? Patient confirmed demographic information.? Patient resides at home with family.? Patient does not utilize any form of DME to assist with ambulation.? Patient does not utilize home oxygen.? Patient describes the ability to complete ADL?s independently.? Patient identified father, Damion Stewart ; as medical surrogate decision maker.? Patient utilizes the [facility] for PCP services.? Patient utilizes [facility] for medication services.? Patient does not participate with dialysis.? Patient does not possess any specialty providers.? Patient possesses history of diabetes.? Plan is for the patient to return home at the time of discharge.? Family will provide transportation on behalf of the patient. ?No further discharge needs identified by the patient.? No further intervention required at this time, social work faculty member will be available to address any further concerns.? Next of Kin: Damion Stewart D/C Plan: Home
--- NOTE | 2024-08-13 11:03 | PD.RESDS ---
Planned Discharge Date 08/13/24 DS: Providers Provider Date of admission: 08/11/24 14:25 Primary care physician: Jerry Chavez MD Admitting Provider: Theresa Huffamn MD Attending Provider on Admission: Josue Roach DO Consults: 08/11/24 14:19 Referral Registered Dietitian Routine Comment: Attending Provider on DC: Costa Torres MD Discharging Provider: Costa Torres MD DS: Diagnosis Problem List Completed Was Problem List Reviewed/Reconciled?: Yes Hospital Course Hospital Course Hospital course: 28-year-old female with past medical history of DM1 was admitted to the ICU on 08/11/2024 for DKA. Patient came in initially with complaints of shortness of breath, tachycardia, poor appetite, and vomiting. Initially was afebrile and tachycardic. Patient's initial anion was 21 with a bicarb less than 10. Patient was downgraded to the medical floors on 08/12/2024 as anion gap closed twice. Patient's blood sugars have been under control throughout the hospital stay, but she did go into hypoglycemia as she had not been eating much of her food. Since that last blood sugars have been within the 120s to 170s. Patient is still working with outpatient primary care physician to get insulin pump. Her NGUYỄN resolved. Patient was able to tolerate diet and did not have any more nausea or vomiting throughout the day. At the time of discharge patient was stable enough to be discharged home. Discharge plan: ? We started famotidine 20mg daily - We have stopped your insulin lispro 15 units with meals as your blood glucose has not required these doses - Continue taking all other home medications as prescribed ? Follow-up with PCP within 1-2 weeks of discharge to follow-up on insulin pump ? Recommend to follow-up and obtain insulin pump as soon as possible - Use long acting insulin 17 units at night and sliding scale on top - Recommend following a diabetic diet for better control of your blood glucose. ? Return to ED if symptoms worsen or recur Problem list: #Diabetic ketoacidosis, resolved #Anion gap metabolic acidosis secondary to DKA, resolved #Type 1 diabetes, uncontrolled #Acute kidney injury, likely prerenal, resolved #Diabetic neuropathy Case disclosed with Attending Dr. Melissa Olivarez PGY1 Status at Discharge Overall status at discharge: patient is progressing back to baseline Time Spent with Patient Time attestation: Total time spent providing and/or coordinating discharge services:>35 min Time spent: Greater than 30 minutes Exam Vital Signs Temp Pulse Resp BP Pulse Ox O2 Del Method 97.9 F 99 17 117/81 99 Room Air 08/13/24 07:52 08/13/24 07:52 08/13/24 07:52 08/13/24 07:52 08/13/24 07:52 08/13/24 07:52 Narrative Exam General: A/O x3, no acute distress Eyes: PERRL, EOMI. Anicteric, vision grossly intact. Ears: No ear pain, no ear discharge, Hearing grossly intact. Nose: No nasal discharge. Mouth/Throat: Moist mucous membranes, no redness, no lesions. Neck: Neck supple, non-tender, no cervical lymphadenopathy. Lungs: Clear CANDY to auscultation and percussion, No accessory muscle use. Cardio: Normal S1/S2, regular rhythm, no murmurs, no JVD Abdomen: Soft, non-tender, no palpable masses, peristalsis present, no guarding or rebound. Extremities: Symmetrical, no significant deformities, no peripheral edema , non-tender, peripheral pulses presents. Skin: No rashes, no lesions, warm to touch. Neuro: No focal neurological deficits. motor and sensory intact Psych: Cooperative, appropriate mood and effect. Discharge Plan Plan Patient Disposition: HOME (Self Care) Prescriptions/Referrals Prescriptions/Med Rec: New famotidine [Pepcid] 20 mg tablet 20 mg PO QDAY Qty: 90 0RF Continued insulin degludec 100 unit/mL (3 mL) insulin pen 17 unit subcut HS Qty: 15 5RF (DME) blood-glucose meter Misc See Rx Instructions .Route Qty: 1 0RF Rx Instructions: As directed (DME) Blood Glucose Test Strip See Rx Instructions .Route Qty: 50 10RF Rx Instructions: Use TID or as directed to test blood sugar (DME) True Metrix Glucose Test Strip Strip See Rx Instructions .Route Qty: 100 0RF Rx Instructions: As directed (DME) lancets Misc See Rx Instructions .Route Qty: 100 5RF Rx Instructions: As directed (DME) pen needle, diabetic 29 gauge x 1/2 needle See Rx Instructions .Route Qty: 100 0RF Rx Instructions: As directed (DME) blood pressure monitor Kit See Rx Instructions .Route Qty: 1 0RF Rx Instructions: As directed melatonin 10 mg capsule 10 mg PO HS PRN (Reason: sleep) Qty: 20 0RF insulin lispro [Admelog U-100 Insulin lispro] 100 unit/mL solution 1 sliding scale dose subcut USEASDIRECTD Qty: 10 0RF ergocalciferol (vitamin D2) 50 mcg (2,000 unit) capsule 150 mcg PO QDAY Qty: 90 4RF Gvoke HypoPen 1-Pack 1 mg/0.2 mL auto-injector 1 mg subcut QDAY PRN (Reason: hypoglycemia) Qty: 0.2 0RF (DME) Omnipod 5 G6-G7 Intro Kt(Gen5) Cartridge See Rx Instructions .Route Qty: 1 0RF Rx Instructions: As directed (DME) Dexcom G7 Veneer Sorter Misc See Rx Instructions .Route Qty: 1 0RF Rx Instructions: As directed insulin aspart U-100 [Novolog PenFill U-100 Insulin] 100 unit/mL cartridge 1 sliding scale dose subcut USEASDIRECTD Qty: 15 1RF hydroxyzine HCl 25 mg tablet 25 mg PO TID PRN (Reason: itching) Qty: 30 0RF (DME) Dexcom G7 Sensor Device See Rx Instructions .Route Qty: 1 12RF Rx Instructions: As directed pregabalin 75 mg capsule 75 mg PO QHS MDD 150 Qty: 30 0RF Discontinued pantoprazole 40 mg tablet,delayed release (DR/EC) 40 mg PO QDAY MDD 40 mg Qty: 30 2RF insulin lispro [Admelog SoloStar U-100 Insulin] 100 unit/mL insulin pen 15 unit subcut TID Qty: 15 4RF duloxetine 30 mg capsule,delayed release(DR/EC) 30 mg PO QDAY Qty: 30 0RF Referrals: Jerry Chavez MD [Primary Care Provider] - Patient/Caregiver Discharge Instructions Other Discharge Diet Instructions: ? We started famotidine 20mg daily - We have stopped your insulin lispro 15 units with meals as your blood glucose has not required these doses - Continue taking all other home medications as prescribed ? Follow-up with PCP within 1-2 weeks of discharge to follow-up on insulin pump ? Recommend to follow-up and obtain insulin pump as soon as possible - Use long acting insulin 17 units at night and sliding scale on top - Recommend following a diabetic diet for better control of your blood glucose. ? Return to ED if symptoms worsen or recur Education Materials: Diabetes Shopping Preparing Meals, Diabetes: Meal Planning, Diabetic Ketoacidosis Print Language: [place] Citizen Stand Alone Forms: Sindhu Award Info., Patient Portal Info Letter Discharge Order Discharge Orders: Discharge (Routine); Ordered 08/13/24 Ordered By: Andrea Olivarez Quality Discharge Quality Measures VTE prophylaxis MD Attestestation MD Attestation I reviewed labs, imaging, EKG, home medications and prior available records. Face to face evaluation was performed by me. I have personally examined the patient and discussed assessment and plan with the IM team. I reviewed the resident note and agree with the plan with exceptions as below. Insulin-dependent diabetes mellitus, type I DKA Medication noncompliance Hypokalemia Will discharge on 17 units of long-acting insulin plus sliding scale insulin Provided diabetic education Continue diabetic diet Ensure medication compliance Outpatient follow-up with PCP/endocrinology Potassium repleted. Outpatient monitor of BMP Time spent is 40 minutes. More than 50% of the time was spent on patient education and coordination of care.
--- NOTE | 2024-08-13 11:24 | PC.SS ---
SS follow up note; Patient is an ICU downgrade. Glucose being monitored. Patient will discharge back home when medically cleared.
[2024-08-13] MEDS: INSULIN LISPRO (AdmeLOG) 1 UNIT/0.01 ML UNIT SC (11:32)
[2024-08-13 12:00] VITALS: BP 121/83; PULSE 91; PULSE 95; RESP 17; TEMP 36.6; O2SAT 99
== END 2024-08-13 15:30 | disposition home or self-care (01) | DRG 420 ==
LOC: SERX 12:29 → SERHOLD 14:26 → S2SX 17:30 → S3SX 08-12 16:21
PROVIDERS: Student in an Organized Health Care Education/Training Program; Admitting Provider Internal Medicine; Emergency Provider Family Medicine; PCP Student in an Organized Health Care Education/Training Program; Visit Provider Student in an Organized Health Care Education/Training Program
DX: E10.10 Type 1 diabetes mellitus with ketoacidosis without coma (principal); E10.42 Type 1 diabetes mellitus with diabetic polyneuropathy; R00.0 Tachycardia, unspecified; N17.9 Acute kidney failure, unspecified; R91.1 Solitary pulmonary nodule; E86.0 Dehydration; E10.649 Type 1 diabetes mellitus with hypoglycemia without coma; F17.200 Nicotine dependence, unspecified, uncomplicated; Z91.148 Patient's other noncompliance with medication regimen for other reason
CPT/HCPCS: 36415; 71045; 80053; 80069; 80307; 81001; 81025; 82010; 82803; 83605; 83735; 84100; 84443; 85025; 87040; 87081; 93005; 93225; 96361; 96374; 96375; 99285; J1650; J1815; J2405; J3480; J3490; J7120; J7121; A9270

== ENCOUNTER 2024-09-30 14:52 | Outpatient (AMB) | payer MEDICAID, SELFPAY ==
[2024-09-30 15:16] VITALS: BP 113/76; PULSE 93; RESP 18; TEMP 36.7; O2SAT 98; BMI 24.3
--- NOTE | 2024-09-30 15:16 | PD.RESCLINIC ---
Vital Signs 09/30/24 15:16 Height 1.6 m Height Method Stated Weight 62.142 kg Weight Measurement Method Standing Scale BMI 24.3 BP 113/76 Blood Pressure Source Automatic Cuff Blood Pressure Location Right Upper Arm Position Sitting Respiration 18 Pulse 93 Pulse Source Monitor Temp 98.0 F Temp Source Temporal Artery Scan Pulse Oximetry (%) 98 Oxygen Delivery Method Room Air Allergies/Meds Allergies & Medications Allergies No Known Allergies Allergy (Verified 05/20/24 15:01) MA Intake Visit Data Collection New Patient or Established: Established Patient (seen at [facility] within 3 years) Seen by Clinical Staff ONLY (RN/MA): No Reason for Visit:: FOLLOW UP PCP or OBGYN visit in last 3 months: Yes Date of Last PCP or OBGYN visit: 08/13/24 Do You Feel Safe at Home: Yes Authorities Contacted: N/A Smoking Status Smoking Status: Never smoker Immunization / Flu Flu Vaccine in the Last 12 Months: Yes Flu Vaccine Exclusion Criteria: Already Received Past Medical History Past Medical History NEUROLOGIC: Negative Neurological Disorders or Seizures CARDIAC: Negative Cardiac Disorders or Congestive Heart Failure RESPIRATORY: Negative Chronic Obstructive Pulmonary Disease (COPD) or Asthma GASTROINTESTINAL: Negative Gastrointestinal Disorders or Gastroesophageal Reflux Disease GENITOURINARY: Negative Genitourinary Disorders, Renal Disease or Kidney Stones ENDOCRINE: Positive Endocrine Disorders, Diabetes Mellitus Type 1 and Diabetes Mellitus Type 2 HEMATOLOGIC: Negative Blood Disorders or Sickle Cell Disease PSYCHO/SOCIAL: Negative Depression OTHER HISTORY: Positive Hospitalization; Negative Falls, Blood Transfusions, Blood Transfusion Reaction, Anesthesia Reactions or MRSA Family History FAMILY HISTORY: Negative Family Psychiatric Problems, Family Respiratory Disorders, Family Cardiac Disorders, Family Gastrointestinal Problems or Family Cancer Social History SMOKING STATUS: Smoking status: Never smoker SECOND HAND EXPOSURE: second hand exposure: No (boyfriend vapes, goes outside to smoke) ALCOHOL: Alcohol Intake: Current ALCOHOL FREQUENCY: Alcohol Intake Frequency: A Few Times a Week HOUSING: Housing: House LIVES WITH: Lives With: Family Patient Portal [facility] Social History Living Situation History Housing: House Housing Other:: Lives w/family Tobacco History Smoking Status: Never smoker Second Hand Smoke Exposure: No (boyfriend vapes, goes outside to smoke) Alcohol History Alcohol Intake: Current Alcohol Intake Frequency: A Few Times a Week Substance Use History Substance Use: Marijuana Domestic Abuse History Do You Feel Safe at Home: Yes Review of Systems Report any current symptoms Only answer those that you have currently: Past Medical History Past Medical History Have you ever been diagnosed with any of the following: Neurological Problems Seizures: No Cardiology Problems Congestive Heart Failure: No Respiratory Problems Chronic Obstructive Pulmonary Disease (COPD): No Asthma: No Stomache/Intestinal Problems Gastroesophageal Reflux Disease: No Genital/Urinary Problems Renal Disease: No Kidney Stones: No Endocrine Problems Diabetes Mellitus Type 1: Yes Diabetes Mellitus Type 2: Yes Blood Problems Sickle Cell Disease: No Psychologic Problems Depression: No Other Problems Hospitalization: Yes Falls: No Blood Transfusions: No Blood Transfusion Reaction: No Anesthesia Reactions: No MRSA: No History of Present Illness HPI Narrative Ms. 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 She has uncontrolled blood sugars and she was not taking her insulin units properly. Hence dose was adjusted. Pt still complaints of tingling sensations and pain in her extremities. Pt was vitally stable and labs will be repeated after three weeks. 03/02/23: Pt came for follow up. She reports having itching on her back. She reports having elevated Blood glucose above 300 mg. She has been feeling unrested secondary to numbness and tingling sensations in extremities.She followed up with her [facility] in [facility] for bladder irritation but she denied taking antibiotic at that time and feels improved now. She has been feeling anxious and reports having palpitations. She was mildly tacycardiac with normal blood pressure. 03/23/23: Patient came for follow up. All labs were reviewed.Patient still complaints of itching and high blood sugars in 400s.Blood glucose of 430 mg/dl, Creatinine of 1.04 , sodium of 132. UA was positive for glucose only. She was counselled to take an appointment with stroke coordinator Dr Arias in [place] for insulin infusion pump. We added fexofenadine and apply moisturizer for pruritus. She denied itching present in anyone else at home. She stated that she has improvement in her anxiety and neuropathy. Switched her lantus to 15 units twice daily and counselled on uptitration based on her blood sugars and continue insulin sliding scale. 04/11/23(ED VISIT in [facility]): Patient went to the ED with chief complaint of generalized pruritus. She denied fever vomiting diarrhea she has no cough or congestion she has had no recent cold. her only concern was that her sugars are high and she needs better management of her diabetes. Medical workup revealed a sugar elevated at 415 otherwise the beta-hydroxybutyrate is negative. Her vital signs are unremarkable. White count is 8.5 hemoglobin 12.6 sodium 136 potassium 4.9 chloride 103 CO2 is 26.8 anion gap is 6 BUN is 18 creatinine 1.2 osmolality is 291. Liver transaminases unremarkable urine is little on the dry side at 1032 she has a few red blood cells in her urine she is not . And she has 4+ glucose in her urine. Patient has intermittent pruritus on her whole body including vagina area it is not just the vaginal area without any vaginal discharge. Concerned was that its more of a stress issue and was advised to keep a diary and record what she is eating what she is doing when she is thinking. She knows she needs to be more aggressive on her diabetes management. She may benefit by getting referred to a neurologist to sort out whether she really has a neuropathy but at this point there is no evidence of a glove and stocking distribution anything. And clinically she has normal sensation normal gait and no obvious neurological deficits. 04/20/23:Patient came for follow up. She reported that she still has complaint of mild itching which is generalized and no vaginal itching present now. She denied any vaginal discharge or burning sensation. She sometimes has mild vaginal pricking sensation. Her Blood sugars have been in 300s on insulin 26 Units. She didn't receive Fexofenadine from the pharmacy due to some reason last time and didn't take which explains persistent itching.She reported improvement in her pain in peripheral extremities. No rash or urticaria seen. Patient has scheduled appt with neurologist in [place] and was advised to schedule appt with stroke coordinator Dr Arias in [place]. 05/18/23: Patient seen in clinic. She denies any acute illness or hospitalizations since last visit. She reports her anxiety continues to be severe with no improvement since last visit. She reports anxiety can come on with no specific trigger. She denies trying Rx for anxiety in the past. Patient was prescribed buspirone on previous visit but has not taken secondary to cost and insurance not covering per patient. Discussed with patient that we will send different Rx to her pharmacy. Patient reports generalized itchiness on previous visit has completely resolved. She reports she obtained [id number] lotion which significantly helped. Patient continues to endorse bilateral neuropathy in her feet. She reports minor improvement with Lyrica. She denies seeing a clinical nursing professor or health and human performance professor in the past. She reports she was diagnosed with diabetes at the age of 4. Last A1c on file 12.5%. Patient does report she recently completed labs [facility] which are not available at this time and patient advised to have results faxed to our clinic. Patient is currently managing her diabetes with long-acting insulin 26 units at bedtime and 12 to 14 units 3 times daily of short acting insulin. Patient was referred to endocrinology previous visit but has not scheduled appointment but patient agrees to follow-up. She reports her weight has been stable. She denies headache and chest pain. No shortness of breath. She denies seeing blood in her urine or stool. She endorses normal bowel habits. She is sexually active with her boyfriend. 06/08/23: Patient was seen in the clinic. She still complaints of mild anxiety and her blood sugars continues to remain elevated. Her fasting blood sugar is above 250 and after meals are 300s. I discussed with the patient that we will stop her insulin lispro and lantus and will switch to degludec and lyumjev. She might be resistant to her old insulin regime. She was referred to clinical nursing professor and health and human performance professor for screening. We ordered A1c and C-peptide level to check her insulin reserves if any. Patient understood and agreed to the plan. She doesnt want to have a visit to Obygyn visit for now. No plan for at this stage. 09/07/23: Patient came for follow-up in the clinic today. Patient reported that she forgot her dose of insulin for Lantus and has been feeling overall better. Her blood sugars have been around 380s. She was advised to start Lantus 20 units and uptitrate 1 unit every day until blood sugars come below 200 mg. Patient also reported having itchy allergic rash on both elbows noticed a month ago and recently using [id number] allergic ointment which has been helping partially. Ordered hydrocortisone 1% topical for week. Patient was advised to make an appointment with clinical nursing professor and health and human performance professor as outpatient. We will continue with current management and patient has been doing well. Her anxiety has improved. No plans for . We will continue with current management. Refills were given. 09/21/2023: Telephone consult. Patient went to the ED On 09/14/2023 due to cellulitis of labia majora and was given prescription of TMP-SMX which has been helping for her complaint however was having persistent left flank pain. Urinalysis and renal functions were ordered. Follow-up on results. Medication refills were given. Blood sugars continues to remain evaluated prefer Lantus was increased to 35 units and lispro was increased to 12 units. Insurance did not cover for her Tresiba. Continue with rest of the management. 01/01/24: Patient came for follow up for unstable glycemic control. Patient was complaining of muscle cramps associated with numbness and tingling in both lower extremities and has been facing troubles maintaining her blood sugars. She reported that her blood sugars have been in 500s and was having hard time adjusting her insulin regimen. Patient is referred to stroke coordinator, Dr. Arias in [place] and referred to clinical nursing professor, Dr. Jose Elias Kerr at [facility] for further evaluation. Insulin Lantus was adjusted to 20 units twice daily and lispro as 15 units 3 times daily with meals with insulin sliding scale. Refills were given for the rest of medications. A1c was ordered for follow-up. Patient stated that her itching and rash has resolved therefore fexofenadine and hydrocortisone topical was discontinued. She does have improvement in her depression and anxiety after taking duloxetine. 05/20/2024: Patient came for follow-up for lab workup. Patient was seen and examined at the bedside this afternoon in the clinic. Patient reported that she continues to have numbness and tingling sensations in both lower extremities however has been feeling improved with duloxetine and pregabalin combination. She also reported that her insulin requirements have been higher given the fact that her blood sugars have been in 600 however they have been around 300 from last few weeks. She does have a component of noncompliance with the diet and eat fried food along with complex carbohydrates. -->She is currently using basal bolus regimen including Tresiba 17 units at night and 15 units 3 times daily lispro and add on with sliding scale corrective dose for carbs ratio. She was not able to get clinical nursing professor appointment and was given another referral for Dr. Jose Elias Kerr have portable. CBC, CMP, C-peptide and GGT were ordered. She may benefit with insulin infusion pump therefore prior authorization was started with [facility]. For now, she was recommended to continue with her current regimen of insulin and duloxetine with pregabalin for neuropathy. Duloxetine was refilled. Will follow-up on the labs and follow-up in 2 weeks. 09/30/24: Patient came to the clinic for follow-up. She was informed that her insulin pump has been approved by the insurance for 100% coverage. She stated that she has been struggling with some family issues and has been feeling stressed out due to that. She reported that her blood sugars have been pretty stable since she has been giving herself ridging of Tresiba 17 units and Admelog based on carbs around 12 units 3 times daily. A1c was repeated given requirement by [employer] for insulin pump. She inquired about getting disability benefits as she was off work for 6 months in 2023. Patient has been struggling with diabetic neuropathy specially affecting her hands and limiting her typing at work and affecting her lifestyle. She would need disability benefits given her severe complicated diabetic neuropathy on pregabalin which helps partially and affected her as she had to go off from work for 6 months. Anticipating improvement in diabetic neuropathy once insulin pump will be initiated. Review of Systems Review of Systems Systems Reviewed: All systems reviewed, normal except as documented Objective/Exam Narrative Physical exam: GENERAL APPEARANCE: AxOx3, generally well-appearing female in no acute distress. HEENT: NC, AT. MMM. EOMI, clear conjunctiva, oropharynx clear. NECK: Supple without lymphadenopathy. No stiffness or restricted ROM. HEART: Sinus tachycardia with regular rhythm, normal S1/S2, no m/r/g LUNGS: CTAB, moving air well. No crackles or wheezes are heard. ABDOMEN: Soft, nontender, nondistended with good bowel sounds heard. EXTREMITIES: Without cyanosis, clubbing or edema. NEUROLOGICAL: Grossly nonfocal. Alert and oriented, moving all 4 extremities. CN not formally tested but appear grossly intact. Observed to ambulate with normal gait. Skin:Warm and dry without any rash. Psych: cooperative and interactive Assessment & Plan Diagnosis / Problem List (1) Type 1 diabetes mellitus with diabetic neuropathy: Status: Acute Assessment & Plan: -Reported to have improvements in Blood sugar on insulin lispro 12 u tid based on carb ratio and 17 u Tresiba HS Plan: -A1c ordered for insulin pump requirements -Insulin pump got approved from [employer] -Continue insulin regime as directed -Will need disability benefits given loss of job for 6 months due to diabetic neuropathy affecting her hands -Rec to cont Pregablin Plan of care discussed with attending Physician, Dr Lito Chavez MD PGY-3 Orders: Orders Ambulatory Hemoglobin A1C Today E10.40 - Type 1 diabetes mellitus with diabetic neuropathy, unspecified Office Procedures [facility] Level of Care Nursing/Assessment Patient Status: Established Patient Nursing Assessment/Reassessment: BP Monitoring, Medication Reconciliation, Update PMH in EMR and Vital Signs Coordination of Care: Complex Care and Chronic Disease 1-5, Consent,records obtained, informed consent, 4+ Authorizations needed and Results/Orders obtained Established Patient Charge Established Patient Point Assignment: 105 Established Patient Point Charge: Level 3 (80-115)
== END 2024-09-30 15:56 | disposition home or self-care (01) ==
LOC: HODAHC 14:52
PROVIDERS: Supervising Provider Internal Medicine; Visit Provider Student in an Organized Health Care Education/Training Program
DX: E10.40 Type 1 diabetes mellitus with diabetic neuropathy, unspecified (principal); Z79.4 Long term (current) use of insulin; Z63.8 Other specified problems related to primary support group
CPT/HCPCS: 99213; G0463

== ENCOUNTER → 2024-11-27 10:33 | Outpatient (AMB) | payer MEDICAID, SELFPAY | PROVIDERS: PCP Student in an Organized Health Care Education/Training Program; Referring Provider Student in an Organized Health Care Education/Training Program; Supervising Provider Internal Medicine; Visit Provider Student in an Organized Health Care Education/Training Program | DX: Z53.9 Procedure and treatment not carried out, unspecified reason (principal) ==

== ENCOUNTER 2024-12-02 13:54 | Outpatient (AMB) | payer MEDICAID, SELFPAY ==
--- NOTE | 2024-12-02 13:58 | OBCLNT_ITS ---
Vital Signs 12/02/24 14:10 Height 1.6 m Height Method Stated Weight 63.163 kg Weight Measurement Method Standing Scale BMI 24.6 BP 112/77 Blood Pressure Source Automatic Cuff Blood Pressure Location Left Upper Arm Position Sitting Respiration 18 Pulse 92 Pulse Source Monitor Temp 98 F Temp Source Oral Pulse Oximetry (%) 98 Oxygen Delivery Method Room Air Allergies/Home Meds Allergies & Medications Allergies No Known Allergies Allergy (Verified 12/02/24 14:11) Medication Reconciliation blood-glucose meter #1 ea 02/02/23 [Rx Confirmed 12/02/24] blood sugar diagnostic (Blood Glucose Test strips) #50 ea 09/21/23 [Rx Confirmed 12/02/24] blood sugar diagnostic (True Metrix Glucose Test Strip) #100 ea 09/21/23 [Rx Confirmed 12/02/24] lancets #100 ea 09/21/23 [Rx Confirmed 12/02/24] pen needle, diabetic 29 gauge x 1/2 #100 ea 09/21/23 [Rx Confirmed 12/02/24] blood pressure monitor #1 ea 10/03/23 [Rx Confirmed 12/02/24] melatonin 10 mg capsule 10 mg PO HS PRN sleep #20 caps 02/21/24 [Rx Confirmed 12/02/24] ergocalciferol (vitamin D2) 50 mcg (2,000 unit) capsule 150 mcg (3 x 50 mcg (2,000 unit)) PO QDAY #90 caps 03/11/24 [Rx Confirmed 12/02/24] glucagon 1 mg/0.2 mL subcutaneous auto-injector (Gvoke HypoPen 1-Pack) 1 mg (0.2 mL) subcut QDAY PRN hypoglycemia #0.2 mL 03/11/24 [Rx Confirmed 12/02/24] hydroxyzine HCl 25 mg tablet 25 mg PO TID PRN itching #30 tabs 06/05/24 [Rx Co nfirmed 12/02/24] insulin aspart U-100 100 unit/mL subcutaneous cartridge (Novolog PenFill U-100 Insulin aspart) 1 sliding scale dose subcut USEASDIRECTD upto 200 units every 3 days via insulin pump #15 mL 06/05/24 [Rx Confirmed 12/02/24] insulin pump cartridge,auto dose,BT,G6/G7 with controller subcutaneous (Omnipod 5 G6-G7 Intro Kit(Gen 5) subcutaneous cartridge and controller) #1 ea 06/05/24 [ Rx Confirmed 12/02/24] famotidine 20 mg tablet (Pepcid) 20 mg PO QDAY #90 tabs 08/11/24 [Rx Confirmed 12/02/24] insulin lispro 100 unit/mL subcutaneous pen 1 sliding scale dose subcut USEASDIRECTD #15 mL 10/16/24 [Rx Confirmed 12/02/24] insulin lispro 100 unit/mL subcutaneous solution (Admelog U-100 Insulin lispro) 1 sliding scale dose subcut USEASDIRECTD #10 mL 10/16/24 [Rx Confirmed 12/02/24] blood-glucose sensor (Dexcom G7 Sensor device) #1 ea 10/24/24 [Rx Confirmed 12/02/24] blood-glucose,leather products supervisor,cont (Dexcom G7 Retirement Benefits Specialist) #1 ea 10/24/24 [Rx Confirmed 12/02/24] pregabalin 75 mg capsule 75 mg PO QHS diabetic neuropathy #30 caps 11/20/24 [Rx Confirmed 12/02/24] insulin degludec 100 unit/mL (3 mL) subcutaneous pen 17 unit (0.17 mL) subcut HS #15 mL 11/23/24 [Rx Confirmed 12/02/24] Intake Visit Data Collection New Patient or Established: Established Patient (seen at [facility] within 3 years) Reason for Visit:: CARE Seen by Clinical Staff ONLY (RN/MA): No Online Tutor Required: No Do You Feel Safe at Home: Yes Authorities Contacted: N/A PCP or OBGYN visit in last 3 months: No Hx Now: Yes Are you currently on any form of Control: No Pain Present Currently: No Pain Scale Used: Andrew-Singh/Numerical Pain scale:: 0 Smoking Status Smoking Status: Never smoker Questionnaires Covid-19 Vaccine Questionnaire Has patient been vacinated for Covid-19 Have you been vacinated for Covid-19: Yes PHQ-9 PHQ-2 Over the last 2 weeks, how often have you been bothered by any of the following problems? 1. Little interest or pleasure in doing things: not at all 2. Feeling down, depressed, or hopeless: not at all Total score: 0 PHQ-9 3. Trouble falling or staying asleep, or sleeping too much: Not at all 4. Feeling tired or having little energy: Not at all 5. Poor appetite or overeating: Not at all 6. Feeling bad about yourself - or that you are a failure or have let yourself or your family down: Not at all 7. Trouble concentrating on things, such as reading the newspaper or watching television: Not at all 8. Moving or speaking so slowly that other people could have noticed? - Or the opposite - being so fidgety or restless that you have been moving around a lot more than usual: not at all 9. Thoughts that you would be better off or of hurting yourself in some way: Not at all Total score: 0 Source: Developed by Drs. Thomas Krishnan, Yeimy Mortensen, Dennis Saab and colleagues, with an educational ora from [employer]. Depression screen completed yes Social History Living Situation History Marital Status: Single Lives With: Family Housing: House Housing Other:: Lives w/family Tobacco History Smoking Status: Never smoker Second Hand Smoke Exposure: No (boyfriend vapes, goes outside to smoke) Alcohol History Alcohol Intake: Current Alcohol Intake Frequency: A Few Times a Week Substance Use History Substance Use: Marijuana Domestic Abuse History Do You Feel Safe at Home: Yes History of Present Illness HPI Narrative The patient is a 29-year-old G1, P0 with an unknown LMP who presents as a new OB. This is a desired . She states she has been trying to get for years . She is a poorly controlled diabetic. According to notes her hemoglobin A1c has been as high as 12. She states she was on a pump when she lived in the [facility] in the past. She has a sensor but states her insurance will not cover a pump. Her primary care is working on this. According to ER notes, she has been admitted multiple times for DKA and also suffers from peripheral neuropathy. I am not sure if she has any she has any opthalomological changes. 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 She has peripheral neuropathy already. OB Initial Visit OB Flowsheet OB Flowsheet Initial Weight: Not Recorded Date -?-?-?-?-?-?-?-?-?-?-?-?- EGA Weight BP Alb Glu CTX Pres Fundal ht FHR Mov Dilation Station Effacement Hx Notes Visit Note 12/02/24 -?-?-?-?-?-?-?-?-?-?-?-?- 6w 3d 63.163 kg 112/77 105 New OB. Labs, Pap, GC chlamydia checked. Menstrual History Menstrual reliability: approximate (month known) Flow: normal Menstrual regularity: irregular Monthly: No Age at menarche: 14 On control pills at conception: No Associated symptoms (LMP): Reports nausea, vomiting, fatigue and breast tenderness OB History : 1 Infection History & Risk Evaluation History of STDs: none Genetic Screening & History Genetic Screening/Teratology Counseling - Includes patient, baby's father, or anyone in either family with: 1. Patient's age 35 years or older as of estimated date of delivery: No 2. Thalassemia (Icelandic, Slovenian, Mediterranean, or Background); MCV less than 80: No 3. Neural Tube Defect (Meningomyelocele, Spina Bifida, or Anencephaly): No 4. Congenital Heart Defect: No 5. Down Syndrome: No 6. Serge-Sachs (Ashkenazi Confucianist, Cajun, Georgian Tongan): No 7. Elizabeth Disease (Ashkenazi Confucianist): No 8. Familial Dysautonomia (Ashkenazi Confucianist): No 9. Sickle Cell Disease or Trait (): No 10. Hemophilia or other blood disorders: No 11. Muscular Dystrophy: No 12. Cystic Fibrosis: No 13. Jami's Chorea: No 14. Mental Retardation/Autism: No 15. Other inherited genetic or chromosomal disorder: No 16. Maternal Metabolic Disorder (EG,TYPE 1 Diabetes, PKU): No 17. Patient or baby's father had a child with defects not listed above: No 18. Recurrent loss or a stillbirth: No 19. Medications (including supplements, vitamins, herbs or otc drugs)/illicit/recreational drugs/alcohol since last menstrual period: No 20. Any other: No Infection History 1. Live with someone with TB or exposed to TB: No 2. Rash or viral illness since last menstrual period: No 3. Hepatitis B,C: No Other (see comments) Source: [employer] Review of Systems Review of Systems Narrative Review of Systems: Patient has nausea mild vomiting and decreased appetite. No bleeding, no cramping ,no abnormal discharge. Some itching. She is prone to yeast infections. Constitutional Constitutional: Reports fatigue Gastrointestinal Gastrointestinal: Reports nausea and Reports vomiting Endocrine Endocrine: Reports fatigue Exam General General Appearance: alert, in no apparent distress, cooperative, well developed and well groomed Exp ENT Teeth exam: Present other (Poor dentition.) Office Procedures OB Clinic LOC & Office Proc's Nursing/Assessment Patient Status: Established Patient OB Clinic Nursing Assessment: Medication Reconciliation, Update PMH in EMR and Vital Signs OB Clinic Coordination of Care: Complex Care and Chronic Disease 1-5, Consent,records obtained, informed consent, Education Simp Pt/Fam, Lab and Imaging orders, Results/Orders obtained and Staff clarify orders Special Needs: Heart tones Miscellaneous Interventions: Pelvic/Pap Smear Set up Established Patient Charge Established Patient Point Assignment: 155 Established Patient Point Charge: EP Level 4 (120-155) In Clinic Procedures Pap Smear: Yes Assessment & Plan Diagnosis / Problem List (1) : Status: Acute Qualifiers: Weeks of gestation: less than 8 weeks Qualified Code(s): Z3A.01 - Less than 8 weeks gestation of (2) Type 1 diabetes mellitus with diabetic neuropathy: Status: Acute Plan: Will comanage with maternal- medicine, possible transfer of care to [facility] depending on how compliant patient is. 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 Papsmear completed: yes
[2024-12-02 14:10] VITALS: BP 112/77; PULSE 92; RESP 18; TEMP 36.6; O2SAT 98; BMI 24.6
== END 2024-12-02 14:46 | disposition home or self-care (01) ==
LOC: HODSOBC 13:54
PROVIDERS: PCP Student in an Organized Health Care Education/Training Program; Referring Provider Student in an Organized Health Care Education/Training Program; Supervising Provider Obstetrics & Gynecology; Visit Provider Obstetrics & Gynecology
DX: O09.891 Supervision of other high risk pregnancies, first trimester (principal); E10.42 Type 1 diabetes mellitus with diabetic polyneuropathy; E10.65 Type 1 diabetes mellitus with hyperglycemia; O24.011 Pre-existing type 1 diabetes mellitus, in pregnancy, first trimester; Z3A.01 Less than 8 weeks gestation of pregnancy; Z12.4 Encounter for screening for malignant neoplasm of cervix; Z11.51 Encounter for screening for human papillomavirus (HPV); Z79.4 Long term (current) use of insulin; Z79.899 Other long term (current) drug therapy
CPT/HCPCS: 99214; Q0091; G0463

== ENCOUNTER 2024-12-17 10:48 | Outpatient (AMB) | payer MEDICAID, SELFPAY ==
[2024-12-17 11:23] VITALS: BP 109/72; PULSE 95; RESP 18; TEMP 36.6; O2SAT 98; BMI 24.6
--- NOTE | 2024-12-17 11:23 | OBCLNT_ITS ---
Vital Signs 12/17/24 11:23 Height 1.6 m Height Method Stated Weight 63.163 kg Weight Measurement Method Standing Scale BMI 24.6 BP 109/72 Blood Pressure Source Automatic Cuff Blood Pressure Location Left Upper Arm Position Sitting Respiration 18 Pulse 95 Pulse Source Monitor Temp 98 F Temp Source Oral Pulse Oximetry (%) 98 Oxygen Delivery Method Room Air Allergies/Home Meds Allergies & Medications Allergies No Known Allergies Allergy (Verified 12/17/24 11:24) Medication Reconciliation blood-glucose meter #1 ea 02/02/23 [Rx Confirmed 12/17/24] blood sugar diagnostic (Blood Glucose Test strips) #50 ea 09/21/23 [Rx Confirmed 12/17/24] blood sugar diagnostic (True Metrix Glucose Test Strip) #100 ea 09/21/23 [Rx Confirmed 12/17/24] lancets #100 ea 09/21/23 [Rx Confirmed 12/17/24] pen needle, diabetic 29 gauge x 1/2 #100 ea 09/21/23 [Rx Confirmed 12/17/24] blood pressure monitor #1 ea 10/03/23 [Rx Confirmed 12/17/24] ergocalciferol (vitamin D2) 50 mcg (2,000 unit) capsule 150 mcg (3 x 50 mcg (2,000 unit)) PO QDAY #90 caps 03/11/24 [Rx Confirmed 12/17/24] hydroxyzine HCl 25 mg tablet 25 mg PO TID PRN itching #30 tabs 06/05/24 [Rx Confirmed 12/17/24] insulin aspart U-100 100 unit/mL subcutaneous cartridge (Novolog PenFill U-100 Insulin aspart) 1 sliding scale dose subcut USEASDIRECTD upto 200 units every 3 days via insulin pump #15 mL 06/05/24 [Rx Confirmed 12/17/24] insulin pump cartridge,auto dose,BT,G6/G7 with controller subcutaneous (Omnipod 5 G6-G7 Intro Kit(Gen 5) subcutaneous cartridge and controller) #1 ea 06/05/24 [Rx Confirmed 12/17/24] famotidine 20 mg tablet (Pepcid) 20 mg PO QDAY #90 tabs 08/11/24 [Rx Confirmed 12/17/24] insulin lispro 100 unit/mL subcutaneous pen 1 sliding scale dose subcut USEASDIRECTD #15 mL 10/16/24 [Rx Confirmed 12/17/24] insulin lispro 100 unit/mL subcutaneous solution (Admelog U-100 Insulin lispro) 1 sliding scale dose subcut USEASDIRECTD #10 mL 10/16/24 [Rx Confirmed 12/17/24] blood-glucose,garden worker,cont (Dexcom G7 Glass Rolling Machine Operator) #1 ea 10/24/24 [Rx Confirmed 12/17/24] pregabalin 75 mg capsule 75 mg PO QHS diabetic neuropathy #30 caps 11/20/24 [Rx Confirmed 12/17/24] insulin degludec 100 unit/mL (3 mL) subcutaneous pen 17 unit (0.17 mL) subcut HS #15 mL 11/23/24 [Rx Confirmed 12/17/24] ondansetron HCl 4 mg tablet 4 mg PO Q6H PRN nausea and vomiting #30 tabs 12/02/24 [Rx Confirmed 12/17/24] blood-glucose sensor (Dexcom G7 Sensor device) #1 ea 12/13/24 [Rx Confirmed 12/17/24] doxylamine 10 mg-pyridoxine (vit B6) 10 mg tablet,delayed release (Diclegis) 1 tab PO TID #60 tabs 12/20/24 [Rx] miconazole nitrate 4 % (200 mg)-2 % (9 gram)vaginal,prefill appl,cream (Monistat 3) 1 appful vaginal QDAY 3 days #24 grams 12/20/24 [Rx] nitrofurantoin monohydrate/macrocrystals 100 mg capsule (Macrobid) 100 mg PO BID 7 days #14 caps 12/20/24 [Rx] vits no.126-ferrous fum 28 mg iron-folic acid 800 mcg tablet (Classic ) 1 tab PO QDAY #90 tabs 12/20/24 [Rx] Intake Visit Data Collection New Patient or Established: Established Patient (seen at [facility] within 3 years) Reason for Visit:: CARE Seen by Clinical Staff ONLY (RN/MA): No Signalman Required: No Do You Feel Safe at Home: Yes Authorities Contacted: N/A PCP or OBGYN visit in last 3 months: Yes Hx Now: Yes Are you currently on any form of Control: No Pain Present Currently: No Pain Scale Used: Andrew-Singh/Numerical Pain scale:: 0 Smoking Status Smoking Status: Never smoker Questionnaires Covid-19 Vaccine Questionnaire Has patient been vacinated for Covid-19 Have you been vacinated for Covid-19: Yes PHQ-9 PHQ-2 Over the last 2 weeks, how often have you been bothered by any of the following problems? 1. Little interest or pleasure in doing things: not at all 2. Feeling down, depressed, or hopeless: not at all Total score: 0 PHQ-9 3. Trouble falling or staying asleep, or sleeping too much: Not at all 4. Feeling tired or having little energy: Not at all 5. Poor appetite or overeating: Not at all 6. Feeling bad about yourself - or that you are a failure or have let yourself or your family down: Not at all 7. Trouble concentrating on things, such as reading the newspaper or watching television: Not at all 8. Moving or speaking so slowly that other people could have noticed? - Or the opposite - being so fidgety or restless that you have been moving around a lot more than usual: not at all 9. Thoughts that you would be better off or of hurting yourself in some way: Not at all Total score: 0 Source: Developed by Drs. Thomas Krishnan, Yeimy Mortensen, Dennis Saab and colleagues, with an educational ora from [employer]. Depression screen completed yes Social History Living Situation History Marital Status: Single Lives With: Family Housing: House Housing Other:: Lives w/family. 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 She is a poorly controlled insulin-dependent diabetic. Her hemoglobin A1c has been as high as 14 in the recent past. She states her blood sugars can run as high as 300-400. Patient has been admitted multiple times for diabetic ketoacidosis. she is excited about the . OB Ultrasound Indication Indication: Size and dates, viability OB Ultrasound Ultrasound technique: transvaginal Gestational sac assessment: Presence, location, size, shape: Live intrauterine with crown-rump length of 2.1 cm corresponding to 8 weeks 5 days. Cardiac activity noted at 154 bpm. Care OB Visit Log OB Flowsheet Initial Weight: Not Recorded Date -?-?-?-?-?-?-?-?-?-?-?-?- EGA Weight BP Alb Glu CTX Pres Fundal ht FHR Mov Dilation Station Effacement Hx Notes Visit Note 12/02/24 -?-?-?-?-?-?-?-?-?-?-?-?- 6w 3d 63.163 kg 112/77 105 New OB. Labs, Pap, GC chlamydia checked. 12/17/24 -?-?-?-?-?-?-?-?-?-?-?-?- 8w 4d 63.163 kg 109/72 8 154 No vaginal bleeding or loss of fluids. MARÍA Calculator Estimated Delivery Date Method Current WG Current Estimate 07/25/25 Ultrasound #1 9w 0d Other Estimates 07/21/25 LMP (Uncertain) 9w 4d Expected Delivery Route/Plan labs ( [facility]) A +/ antibody negative/ rubella nonimmune /RPR nonreactive /hepatitis B surface antigen negative /hepatitis C- /HIV negative/ GC negative/Chlamydia negative/ hemoglobin 12 /hematocrit 39.8 urine culture positive for E. coli 100,000 /electrolyte panel normal/ Pap normal with positive yeast on Pap. Specific Issue/Plans Poorly controlled 1 diabetes. First trimester hemoglobin A1c 12 drawn 12/04/2024 Noncompliant with multiple admissions for DKA Possible peripheral neuropathy and retinopathy Notes Visit Date: 12/17/24 Last Updated by: Shannan Morales (OB Clinic)MD The father the baby is present today asking about a paternity test. Pap normal GC chlamydia negative Hemoglobin A1c 12. Visit Date: 12/02/24 Last Updated by: Shannan Morales (OB Clinic)MD Patient is a poorly controlled insulin-dependent diabetic. Check hemoglobin A1c. Patient will be to be co- managed or possibly her care might need to be transferred to a maternal- medicine specialist in [place]. The importance of following her diabetic diet and trying to stay out of the ER with DKA was stressed very strongly to the patient. I told the patient poorly controlled diabetes has an increased risk of -induced hypertension, preeclampsia, emergency , shoulder dystocia, and demise. I did stress the baby is still forming their organs and if she could keep her blood sugars under strict control during this would be optimal. Patient states she is quite motivated to take care of her blood sugars and states her sugars have been in the 100s to 200s which is very low for her. She has some nausea and vomiting and decreased appetite at this time. I will prescribe anti nausea medicines. I told the patient also prevent severe hypoglycemic episodes and keep close eye on her sugars especially if she is skipping meals. Office Procedures OB Clinic LOC & Office Proc's Nursing/Assessment Patient Status: Established Patient OB Clinic Nursing Assessment: Medication Reconciliation, Update PMH in EMR and Vital Signs OB Clinic Coordination of Care: Complex Care and Chronic Disease 1-5, Consent,records obtained, informed consent, Education Simp Pt/Fam, Lab and Imaging orders, Results/Orders obtained and Staff clarify orders Special Needs: Heart tones Established Patient Charge Established Patient Point Assignment: 135 Established Patient Point Charge: EP Level 4 (120-155) Assessment & Plan Diagnosis / Problem List (1) : Status: Acute Qualifiers: Weeks of gestation: 9 weeks Qualified Code(s): Z3A.09 - 9 weeks gestation of (2) Diabetes type 1, uncontrolled: Status: Acute Qualifiers: Glycemic state: with hyperglycemia Qualified Code(s): E10.65 - Type 1 diabetes mellitus with hyperglycemia Plan: Refer to [facility]. Hemoglobin A1c 12. Baby has at least a 20% chance of anomalies. Need level 2 ultrasound and echocardiogram. Patient probably needs an echocardiogram for herself and an ophthalmology exam. Will try to authorize for these.
== END 2024-12-17 12:11 | disposition home or self-care (01) ==
LOC: HODSOBC 10:48
PROVIDERS: Supervising Provider Obstetrics & Gynecology; Visit Provider Obstetrics & Gynecology
DX: O09.891 Supervision of other high risk pregnancies, first trimester (principal); Z3A.08 8 weeks gestation of pregnancy; O24.011 Pre-existing type 1 diabetes mellitus, in pregnancy, first trimester; E10.65 Type 1 diabetes mellitus with hyperglycemia; Z79.4 Long term (current) use of insulin
CPT/HCPCS: 99214; G0463

== ENCOUNTER → 2024-12-19 | Outpatient (CLI) | payer MEDICAID, SELFPAY ==
--- NOTE | 2024-12-19 08:45 | XR_ITS ---
Examination: Complete OB ultrasound, less than 14 weeks, transabdominal Date and time of exam: December 19, 2024 0932 hours INDICATIONS: Early by history, unknown size and dates Technique: Obstetrical ultrasound images less than 14 weeks performed via transabdominal imaging Findings: A normal shaped single intrauterine gestation is present in the uterus. CRL 2.3 cm corresponds to 9 week 0 day gestational age. Cardiac motion 167 BPM Ultrasonographic survey of visible and placental structures unremarkable. Amniotic fluid volume appears appropriate for this estimated gestational age. Right ovary obscured by bowel gas Left ovary 3.1 cm arterial flow 17 mm cyst IMPRESSION: Viable intrauterine gestation 9 weeks 0 days.
== END | disposition home or self-care (01) ==
PROVIDERS: Referring Provider Obstetrics & Gynecology; Visit Provider Obstetrics & Gynecology
DX: Z3A.01 Less than 8 weeks gestation of pregnancy (principal); Z3A.09 9 weeks gestation of pregnancy
CPT/HCPCS: 76801

== ENCOUNTER 2024-12-31 12:59 | Outpatient (AMB) | payer MEDICAID, SELFPAY ==
[2024-12-31 13:17] VITALS: BP 105/66; PULSE 79; RESP 16; TEMP 36.6; O2SAT 98; BMI 25.0
--- NOTE | 2024-12-31 13:17 | OBCLNT_ITS ---
Vital Signs 12/31/24 13:17 Height 1.6 m Height Method Stated Weight 64.07 kg Weight Measurement Method Standing Scale BMI 25.0 BP 105/66 Blood Pressure Source Automatic Cuff Blood Pressure Location Left Upper Arm Position Sitting Respiration 16 Pulse 79 Pulse Source Monitor Temp 97.8 F Temp Source Oral Pulse Oximetry (%) 98 Oxygen Delivery Method Room Air Allergies/Home Meds Allergies & Medications Allergies No Known Allergies Allergy (Verified 12/31/24 13:18) Medication Reconciliation blood-glucose meter #1 ea 02/02/23 [Rx Confirmed 12/31/24] blood sugar diagnostic (Blood Glucose Test strips) #50 ea 09/21/23 [Rx Confirmed 12/31/24] blood sugar diagnostic (True Metrix Glucose Test Strip) #100 ea 09/21/23 [Rx Confirmed 12/31/24] lancets #100 ea 09/21/23 [Rx Confirmed 12/31/24] pen needle, diabetic 29 gauge x 1/2 #100 ea 09/21/23 [Rx Confirmed 12/31/24] blood pressure monitor #1 ea 10/03/23 [Rx Confirmed 12/31/24] ergocalciferol (vitamin D2) 50 mcg (2,000 unit) capsule 150 mcg (3 x 50 mcg (2,000 unit)) PO QDAY #90 caps 03/11/24 [Rx Confirmed 12/31/24] hydroxyzine HCl 25 mg tablet 25 mg PO TID PRN itching #30 tabs 06/05/24 [Rx Confirmed 12/31/24] insulin aspart U-100 100 unit/mL subcutaneous cartridge (Novolog PenFill U-100 Insulin aspart) 1 sliding scale dose subcut USEASDIRECTD upto 200 units every 3 days via insulin pump #15 mL 06/05/24 [Rx Confirmed 12/31/24] insulin pump cartridge,auto dose,BT,G6/G7 with controller subcutaneous (Omnipod 5 G6-G7 Intro Kit(Gen 5) subcutaneous cartridge and controller) #1 ea 06/05/24 [Rx Confirmed 12/31/24] famotidine 20 mg tablet (Pepcid) 20 mg PO QDAY #90 tabs 08/11/24 [Rx Confirmed 12/31/24] insulin lispro 100 unit/mL subcutaneous pen 1 sliding scale dose subcut USEASDIRECTD #15 mL 10/16/24 [Rx Confirmed 12/31/24] insulin lispro 100 unit/mL subcutaneous solution (Admelog U-100 Insulin lispro) 1 sliding scale dose subcut USEASDIRECTD #10 mL 10/16/24 [Rx Confirmed 12/31/24] blood-glucose,database administration project manager,cont (Dexcom G7 Iron Assorter) #1 ea 10/24/24 [Rx Confirmed 12/31/24] pregabalin 75 mg capsule 75 mg PO QHS diabetic neuropathy #30 caps 11/20/24 [Rx Confirmed 12/31/24] insulin degludec 100 unit/mL (3 mL) subcutaneous pen 17 unit (0.17 mL) subcut HS #15 mL 11/23/24 [Rx Confirmed 12/31/24] ondansetron HCl 4 mg tablet 4 mg PO Q6H PRN nausea and vomiting #30 tabs 12/02/24 [Rx Confirmed 12/31/24] blood-glucose sensor (Dexcom G7 Sensor device) #1 ea 12/13/24 [Rx Confirmed 12/31/24] doxylamine 10 mg-pyridoxine (vit B6) 10 mg tablet,delayed release (Diclegis) 1 tab PO TID #60 tabs 12/20/24 [Rx Confirmed 12/31/24] vits no.126-ferrous fum 28 mg iron-folic acid 800 mcg tablet (Classic ) 1 tab PO QDAY #90 tabs 12/20/24 [Rx Confirmed 12/31/24] Intake Visit Data Collection New Patient or Established: Established Patient (seen at [facility] within 3 years) Reason for Visit:: CARE Seen by Clinical Staff ONLY (RN/MA): No Sql Architect Required: No Do You Feel Safe at Home: Yes Authorities Contacted: N/A PCP or OBGYN visit in last 3 months: Yes Hx Now: Yes Are you currently on any form of Control: No Pain Present Currently: No Pain Scale Used: Andrew-Singh/Numerical Pain scale:: 0 Smoking Status Smoking Status: Never smoker Questionnaires Covid-19 Vaccine Questionnaire Has patient been vacinated for Covid-19 Have you been vacinated for Covid-19: Yes PHQ-9 PHQ-2 Over the last 2 weeks, how often have you been bothered by any of the following problems? 1. Little interest or pleasure in doing things: not at all 2. Feeling down, depressed, or hopeless: not at all Total score: 0 PHQ-9 3. Trouble falling or staying asleep, or sleeping too much: Not at all 4. Feeling tired or having little energy: Not at all 5. Poor appetite or overeating: Not at all 6. Feeling bad about yourself - or that you are a failure or have let yourself or your family down: Not at all 7. Trouble concentrating on things, such as reading the newspaper or watching television: Not at all 8. Moving or speaking so slowly that other people could have noticed? - Or the opposite - being so fidgety or restless that you have been moving around a lot more than usual: not at all 9. Thoughts that you would be better off or of hurting yourself in some way: Not at all Total score: 0 Source: Developed by Drs. Thomas Krishnan, Yeimy Mortensen, Dennis Saab and colleagues, with an educational ora from [employer]. Depression screen completed yes Social History Living Situation History Lives With: Family Housing: House Housing Other:: Lives w/family. 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 Labs, Pap, GC chlamydia checked. 12/17/24 -?-?-?-?-?-?--?-?-?-?-?-?- 8w 4d 63.163 kg 109/72 8 154 No vaginal bleeding or loss of fluids. 12/31/24 -?-?-?-?-?-?-?-?-?-?-?-?- 10w 4d 64.07 kg 105/66 10 137 No bleeding or loss of fluids Patient is charting her blood sugars. Some are over 200. The fastings are running between 60 and 205. MARÍA Calculator Estimated Delivery Date Method Current WG Current Estimate 07/25/25 Ultrasound #1 10w 4d Other Estimates 07/21/25 LMP (Uncertain) 11w 1d Expected Delivery Route/Plan labs ( [facility]) A +/ antibody negative/ rubella nonimmune /RPR nonreactive /hepatitis B surface antigen negative /hepatitis C- /HIV negative/ GC negative/Chlamydia negative/ hemoglobin 12 /hematocrit 39.8 urine culture positive for E. coli 100,000 /electrolyte panel normal/ Pap normal with positive yeast on Pap. Specific Issue/Plans Poorly controlled 1 diabetes. First trimester hemoglobin A1c 12 drawn 12/04/2024 Noncompliant with multiple admissions for DKA Possible peripheral neuropathy and retinopathy Notes Visit Date: 12/31/24 Last Updated by: Shannan Morales (OB Clinic)MD Patient is on 17 units of NPH and a sliding scale of insulin states she is taking between 12 and 15 units each meal. She is trying to get a referral to Dr Vilma Su. NIPT drawn today. Father the baby at bedside. Visit Date: 12/17/24 Last Updated by: Shannan Morales (OB Clinic)MD The father the baby is present today asking about a paternity test. Pap normal GC chlamydia negative Hemoglobin A1c 12. Visit Date: 12/02/24 Last Updated by: Shannan Morales (OB Clinic)MD Patient is a poorly controlled insulin-dependent diabetic. Check hemoglobin A1c. Patient will be to be co- managed or possibly her care might need to be transferred to a maternal- medicine specialist in [place]. The importance of following her diabetic diet and trying to stay out of the ER with DKA was stressed very strongly to the patient. I told the patient poorly controlled diabetes has an increased risk of -induced hypertension, preeclampsia, emergency , shoulder dystocia, and demise. I did stress the baby is still forming their organs and if she could keep her blood sugars under strict control during this would be optimal. Patient states she is quite motivated to take care of her blood sugars and states her sugars have been in the 100s to 200s which is very low for her. She has some nausea and vomiting and decreased appetite at this time. I will prescribe anti nausea medicines. I told the patient also prevent severe hypoglycemic episodes and keep close eye on her sugars especially if she is skipping meals. Office Procedures OBC Clinic LOC & Office Proc's Nursing/Assessment Patient Status: Established Patient OB Clinic Nursing Assessment: Medication Reconciliation, Update PMH in EMR and Vital Signs OB Clinic Coordination of Care: Complex Care and Chronic Disease 1-5, Consent,records obtained, informed consent, Education Simp Pt/Fam, Lab and Imaging orders, Results/Orders obtained and Staff clarify orders Special Needs: Heart tones Established Patient Charge Established Patient Point Assignment: 135 Established Patient Point Charge: EP Level 4 (120-155) Assessment & Plan Diagnosis / Problem List (1) : Status: Acute Qualifiers: Weeks of gestation: 9 weeks Qualified Code(s): Z3A.09 - 9 weeks gestation of Plan: NIPT today referred to Dr. Su in [place] (2) Diabetes type 1, uncontrolled: Status: Acute Qualifiers: Glycemic state: with hyperglycemia Qualified Code(s): E10.65 - Type 1 diabetes mellitus with hyperglycemia Plan: Patient is taking her insulin now. Refer to Dr. Su. First trimester hemoglobin A1c 12.
== END 2024-12-31 14:00 | disposition home or self-care (01) ==
PROVIDERS: Supervising Provider Obstetrics & Gynecology; Visit Provider Obstetrics & Gynecology
DX: O09.891 Supervision of other high risk pregnancies, first trimester (principal); O24.011 Pre-existing type 1 diabetes mellitus, in pregnancy, first trimester; E10.65 Type 1 diabetes mellitus with hyperglycemia; Z79.4 Long term (current) use of insulin; Z3A.10 10 weeks gestation of pregnancy; Z91.199 Patient's noncompliance with other medical treatment and regimen due to unspecified reason
CPT/HCPCS: 99214; G0463

== ENCOUNTER 2025-01-29 10:53 | Outpatient (AMB) | payer MEDICAID, SELFPAY ==
[2025-01-29 10:56] VITALS: BP 90/62; PULSE 89; RESP 16; TEMP 36.4; O2SAT 98; BMI 25.0
--- NOTE | 2025-01-29 10:56 | OBCLNT_ITS ---
Vital Signs 01/29/25 10:56 Height 1.6 m Height Method Stated Weight 64.127 kg Weight Measurement Method Standing Scale BMI 25.0 BP 90/62 Blood Pressure Source Automatic Cuff Blood Pressure Location Left Upper Arm Position Sitting Respiration 16 Pulse 89 Pulse Source Monitor Temp 97.6 F Temp Source Oral Pulse Oximetry (%) 98 Oxygen Delivery Method Room Air Allergies/Home Meds Allergies & Medications Allergies No Known Allergies Allergy (Verified 01/29/25 11:02) Medication Reconciliation blood-glucose meter #1 ea 02/02/23 [Rx Confirmed 01/29/25] blood sugar diagnostic (True Metrix Glucose Test Strip) #100 ea 09/21/23 [Rx Confirmed 01/29/25] lancets #100 ea 09/21/23 [Rx Confirmed 01/29/25] pen needle, diabetic 29 gauge x 1/2 #100 ea 09/21/23 [Rx Confirmed 01/29/25] blood pressure monitor #1 ea 10/03/23 [Rx Confirmed 01/29/25] ergocalciferol (vitamin D2) 50 mcg (2,000 unit) capsule 150 mcg (3 x 50 mcg (2,000 unit)) PO QDAY #90 caps 03/11/24 [Rx Confirmed 01/29/25] hydroxyzine HCl 25 mg tablet 25 mg PO TID PRN itching #30 tabs 06/05/24 [Rx Confirmed 01/29/25] insulin aspart U-100 100 unit/mL subcutaneous cartridge (Novolog PenFill U-100 Insulin aspart) 1 sliding scale dose subcut USEASDIRECTD upto 200 units every 3 days via insulin pump #15 mL 06/05/24 [Rx Confirmed 01/29/25] insulin pump cartridge,auto dose,BT,G6/G7 with controller subcutaneous (Omnipod 5 G6-G7 Intro Kit(Gen 5) subcutaneous cartridge and controller) #1 ea 06/05/24 [Rx Confirmed 01/29/25] famotidine 20 mg tablet (Pepcid) 20 mg PO QDAY #90 tabs 08/11/24 [Rx Confirmed 01/29/25] insulin lispro 100 unit/mL subcutaneous pen 1 sliding scale dose subcut USEASDIRECTD #15 mL 10/16/24 [Rx Confirmed 01/29/25] insulin lispro 100 unit/mL subcutaneous solution (Admelog U-100 Insulin lispro) 1 sliding scale dose subcut USEASDIRECTD #10 mL 10/16/24 [Rx Confirmed 01/29/25] blood-glucose,rack washer,cont (Dexcom G7 Field Support Specialist) #1 ea 10/24/24 [Rx Confirmed 01/29/25] pregabalin 75 mg capsule 75 mg PO QHS diabetic neuropathy #30 caps 11/20/24 [Rx Confirmed 01/29/25] insulin degludec 100 unit/mL (3 mL) subcutaneous pen 17 unit (0.17 mL) subcut HS #15 mL 11/23/24 [Rx Confirmed 01/29/25] ondansetron HCl 4 mg tablet 4 mg PO Q6H PRN nausea and vomiting #30 tabs 12/02/24 [Rx Confirmed 01/29/25] blood-glucose sensor (Dexcom G7 Sensor device) #1 ea 12/13/24 [Rx Confirmed 01/29/25] doxylamine 10 mg-pyridoxine (vit B6) 10 mg tablet,delayed release (Diclegis) 1 tab PO TID #60 tabs 12/20/24 [Rx Confirmed 01/29/25] vits no.126-ferrous fum 28 mg iron-folic acid 800 mcg tablet (Classic ) 1 tab PO QDAY #90 tabs 12/20/24 [Rx Confirmed 01/29/25] blood sugar diagnostic (Blood Glucose Test strips) #50 ea 01/17/25 [Rx Confirmed 01/29/25] ondansetron HCl 8 mg tablet 8 mg PO Q8H #30 tabs 01/29/25 [Rx] Intake Visit Data Collection New Patient or Established: Established Patient (seen at [facility] within 3 years) Reason for Visit:: CARE Seen by Clinical Staff ONLY (RN/MA): No Inspector Precision Required: No Do You Feel Safe at Home: Yes Authorities Contacted: N/A PCP or OBGYN visit in last 3 months: Yes Hx Now: Yes Are you currently on any form of Control: No Pain Present Currently: Yes Pain Location: Abdomen (LOWER) Pain Scale Used: Andrew-Singh/Numerical Pain scale:: 5 Smoking Status Smoking Status: Never smoker Immunizations Flu Vaccine in the Last 12 Months: Yes Flu Vaccine Exclusion Criteria: Already Received Questionnaires Covid-19 Vaccine Questionnaire Has patient been vacinated for Covid-19 Have you been vacinated for Covid-19: No PHQ-9 PHQ-2 Over the last 2 weeks, how often have you been bothered by any of the following problems? 1. Little interest or pleasure in doing things: not at all 2. Feeling down, depressed, or hopeless: not at all Total score: 0 PHQ-9 3. Trouble falling or staying asleep, or sleeping too much: Not at all 4. Feeling tired or having little energy: Not at all 5. Poor appetite or overeating: Not at all 6. Feeling bad about yourself - or that you are a failure or have let yourself or your family down: Not at all 7. Trouble concentrating on things, such as reading the newspaper or watching television: Not at all 8. Moving or speaking so slowly that other people could have noticed? - Or the opposite - being so fidgety or restless that you have been moving around a lot more than usual: not at all 9. Thoughts that you would be better off or of hurting yourself in some way: Not at all Total score: 0 Source: Developed by Drs. Thomas Krishnan, Yeimy Mortensen, Dennis Saab and colleagues, with an educational ora from [employer]. Depression screen completed yes Social History Living Situation History Lives With: Family Housing: House Housing Other:: Lives w/family. 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 Labs, Pap, GC chlamydia checked. 12/17/24 -?-?-?-?-?-?-?-?-?-?-?-?- 8w 4d 63.163 kg 109/72 8 154 No vaginal bleeding or loss of fluids. 12/31/24 -?-?-?-?-?-?-?-?-?-?-?-?- 10w 4d 64.07 kg 105/66 10 137 No bleeding or loss of fluids Patient is charting her blood sugars. Some are over 200. The fastings are running between 60 and 205. 01/29/25 -?-?-?-?-?-?-?-?-?-?-?-?- 14w 5d 64.127 kg 90/62 14 145 absent Denies leaking, bleeding, cramping. Patient was transferred by Dr Morales to Dr. Su for OB care due to her diabetes and other health issues. Denies leaking, bleeding, cr amping. Patient was transferred by Dr Morales to Dr. Su for OB care due to her diabetes and other health issues. Reminded patient to keep appointments with Dr. Su and advised her to walk more and be more active and discussed diet. Reminded patient to keep meron ointments with Dr. Su and advised her to walk more and be more active and discussed diet. Discussed comfort measures for nausea and vomiting. Zofran 8 mg Q8 as needed for nausea MARÍA Calculator Estimated Delivery Date Method Current WG Current Estimate 07/25/25 Ultrasound #1 14w 5d Other Estimates 07/21/25 LMP (Uncertain) 15w 2d Expected Delivery Route/Plan labs ( [facility]) A +/ antibody negative/ rubella nonimmune /RPR nonreactive /hepatitis B surface antigen negative /hepatitis C- /HIV negative/ GC negative/Chlamydia negative/ hemoglobin 12 /hematocrit 39.8 urine culture positive for E. coli 100,000 /electrolyte panel normal/ Pap normal with positive yeast on Pap. Specific Issue/Plans Poorly controlled 1 diabetes. First trimester hemoglobin A1c 12 drawn 12/04/2024 Noncompliant with multiple admissions for DKA Possible peripheral neuropathy and retinopathy Notes Visit Date: 12/31/24 Last Updated by: Shannan Morales (OB Clinic)MD Patient is on 17 units of NPH and a sliding scale of insulin states she is taking between 12 and 15 units each meal. She is trying to get a referral to Dr. Su. NIPT drawn today. Father the baby at bedside. Visit Date: 12/17/24 Last Updated by: Shannan Morales (OB Clinic)MD The father the baby is present today asking about a paternity test. Pap normal GC chlamydia negative Hemoglobin A1c 12. Visit Date: 12/02/24 Last Updated by: Shannan Morales ([facility] Clinic)MD Patient is a poorly controlled insulin-dependent diabetic. Check hemoglobin A1c. Patient will be to be co- managed or possibly her care might need to be transferred to a maternal- medicine specialist in [place]. The importance of following her diabetic diet and trying to stay out of the ER with DKA was stressed very strongly to the patient. I told the patient poorly controlled diabetes has an increased risk of -induced hypertension, preeclampsia, emergency , shoulder dystocia, and demise. I did stress the baby is still forming their organs and if she could keep her blood sugars under strict control during this would be optimal. Patient states she is quite motivated to take care of her blood sugars and states her sugars have been in the 100s to 200s which is very low for her. She has some nausea and vomiting and decreased appetite at this time. I will prescribe anti nausea medicines. I told the patient also prevent severe hypoglycemic episodes and keep close eye on her sugars especially if she is skipping meals. Office Procedures OBC Clinic LOC & Office Proc's Nursing/Assessment Patient Status: Established Patient OB Clinic Nursing Assessment: Medication Reconciliation, Update PMH in EMR and Vital Signs OB Clinic Coordination of Care: Complex Care and Chronic Disease 1-5, Consent,records obtained, informed consent, Education Simp Pt/Fam, 1 Ins Authorization, Lab and Imaging orders, Results/Orders obtained and Staff clarify orders Special Needs: Heart tones Established Patient Charge Established Patient Point Assignment: 150 Established Patient Point Charge: EP Level 4 (120-155) Assessment & Plan Diagnosis / Problem List (1) Hyperemesis gravidarum: Status: Acute (2) : Status: Acute Qualifiers: Weeks of gestation: 9 weeks Qualified Code(s): Z3A.09 - 9 weeks gestation of Plan Comfort measures for nausea and vomiting. Zofran 8 mg every 8 as needed for nausea. I advised patient that she was to continue to follow care with Dr. Su and keep all her appointments at that office. Additional Plan Follow Up: 4 Weeks (obc)
== END 2025-01-29 11:57 | disposition home or self-care (01) ==
PROVIDERS: Supervising Provider Advanced Practice Midwife; Visit Provider Advanced Practice Midwife
DX: O09.892 Supervision of other high risk pregnancies, second trimester (principal); O21.0 Mild hyperemesis gravidarum; O24.012 Pre-existing type 1 diabetes mellitus, in pregnancy, second trimester; E10.65 Type 1 diabetes mellitus with hyperglycemia; E10.40 Type 1 diabetes mellitus with diabetic neuropathy, unspecified; Z3A.14 14 weeks gestation of pregnancy; Z79.4 Long term (current) use of insulin; Z79.899 Other long term (current) drug therapy
CPT/HCPCS: 99214; G0463